=== PATIENT | female | born 2000 | race Caucasian/White ===

== ENCOUNTER → 2023-03-20 | Outpatient (CLI) | payer OTHER, SELFPAY ==
[2023-03-21 10:10] LABS: Bacteria 0 SEEN /hpf (None Seen); Mucous, Urine 0 SEEN /hpf (<or=2+)
[2023-03-21 10:40] LABS: Color, Urine Straw (Yellow); Glucose, Dipstick Normal (Normal); Ketone-Dipstick Negative (Negative); Leukocyte Esterase-Dipstick 100 /ul (Negative); Nitrite-Dipstick Negative (Negative); Occult Blood-Urine 25 /ul (Negative); Protein-Dipstick Negative (Negative); Specific Gravity, Urine 1.005 (1.002-1.030); Urine Bilirubin Dipstick Negative (Negative); Urine Clarity Sl. Cloudy (Clear); Urine Urobilinogen Normal (Normal)
[2023-03-21 11:04] LABS: Red Blood Cells-Urine 0-5 SEEN /hpf (0-5); Squamous Epithelial Cells - UA 0-5 SEEN /hpf (5-10); White Blood Cells 10-25 SEEN /hpf (0-5)
== END | disposition home or self-care (01) ==
PROVIDERS: Referring Provider Nurse Practitioner Family; Visit Provider Nurse Practitioner Family
DX: R30.0 Dysuria (principal)
CPT/HCPCS: 81001; 87077; 87086; 87088; 87186

== ENCOUNTER → 2023-06-20 | Outpatient (CLI) | payer OTHER, SELFPAY ==
--- NOTE | 2023-06-20 08:39 | US_ITS ---
STUDY: ULTRASOUND BREAST - RIGHT REASON FOR EXAM: Female, 23 years old. Palpable lump and tenderness in the right axilla. TECHNIQUE: Axial and longitudinal images of the RIGHT breast were performed with a high resolution ultrasound transducer. # OF IMAGES: 67 COMPARISON: None. FINDINGS: RIGHT Breast: The right axilla was examined with ultrasound. 2 benign-appearing lymph nodes are seen. The larger lymph node measures 1.5 cm x 1.2 cm x 0.5 cm. US/Breast Limited Unilateral IMPRESSION: 2 benign-appearing lymph nodes are seen in the right axilla. ASSESSMENT CATEGORY: BIRADS Category 2: Benign. A letter regarding these results will be sent to the patient by the facility within 30 days. Electronically Signed: Abhinav Panda MD at 10:04 EST ,
== END | disposition home or self-care (01) ==
LOC: US 08:35
PROVIDERS: PCP Nurse Practitioner Family; Referring Provider Nurse Practitioner Family; Visit Provider Nurse Practitioner Family
DX: L04.2 Acute lymphadenitis of upper limb (principal); N63.31 Unspecified lump in axillary tail of the right breast
CPT/HCPCS: 76642

== ENCOUNTER → 2023-06-23 | Outpatient (CLI) | payer OTHER, SELFPAY ==
[2023-06-23 09:06] LABS: Hematocrit 38.5 % (37-47); Hemoglobin 12.5 g/dL (12.0-15.0); Mean Corp Hgb Conc 32.5 g/dL (32-36); Mean Corpuscular Hgb 28.3 pg (27.0-32.0); Mean Corpuscular Volume 87.3 fL (81-99); Mean Platelet Vol. 9.8 fl (6.2-12.0); Platelet Count 295 K/mm3 (150-450); RBC Distribution Width CV 12.4 % (11.6-14.6); RBC Distribution Width SD 39.4 fl (35.1-43.9); Red Blood Count 4.41 M/mm3 (4.2-5.4); White Blood Count 8.4 K/mm3 (4.4-11.0)
== END | disposition home or self-care (01) ==
PROVIDERS: PCP Nurse Practitioner Family; Visit Provider Nurse Practitioner Family
DX: I88.9 Nonspecific lymphadenitis, unspecified (principal)
CPT/HCPCS: 36415; 85027

== ENCOUNTER → 2023-08-10 | Outpatient (CLI) | payer OTHER, SELFPAY ==
--- OUTSIDE RECORDS SUMMARY | 2023-08-10 08:26 | XMS RPT_ITS | CCD ---
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 the next 1-2 months. She has seen Dr. Thorne before, so schedule with Dr. Thorne. documented in this encounter [facility] 12-24-2020 Telephone encounter Note Please call patient and have her schedule a well woman exam in the next 1-2 months. She has seen Dr. Thorne before, so schedule with Dr. Thorne. [facility] Diagnosis High-tone pelvic floor dysfunction- Primary Other specified disorders of female genital organs documented in this encounter [facility] note* Diagnosis Dysmenorrhea documented in this encounter [facility] note* Diagnosis Dysmenorrhea- Primary Chronic pelvic pain in female Unspecified symptom associated with female genital organs documented in this encounter [facility] note* Diagnosis High-tone pelvic floor dysfunction- Primary Other specified disorders of female genital organs documented in this encounter [facility] note* Diagnosis High-tone pelvic floor dysfunction- Primary Other specified disorders of female genital organs documented in this encounter [facility] note* Diagnosis High-tone pelvic floor dysfunction- Primary Other specified disorders of female genital organs Muscle spasm Spasm of muscle Dysmenorrhea documented in this encounter [facility] note* Diagnosis Encounter for contraceptive management, unspecified type Menstrual migraine without status migrainosus, not intractable documented in this encounter [facility] for referral (narrative)* Outpatient Procedure (Routine) - Pending Review Specialty Diagnoses / Procedures Referred By Memo holman Referred To Contact [facility] Diagnoses Dysmenorrhea Procedures INSERT INTRAUTERINE DEVICE LEVONORGESTREL IU 52MG 5 YR INSERT INTRAUTERINE DEVICE Devan Ryder MD [address] [place] [address] [id number] [place] [address] Referral ID Status Reason Start Date Expiration Date Visits Requested Visits Authorized [id number] Pending Review Auto-Generat ed Referral 02/26/2022 02/26/2023 1 1 [facility] Summary Purpose Family History No Family History Records FoundNo Family History Records FoundNo Family History Records FoundNo Family History Records FoundNo Family History Records FoundNo Family History Records FoundNo Family History Records FoundNo Family History Records FoundNo Family History Records FoundNo Family History Records FoundNo Family History Records Found Advance Directives No Advanced Directives Records FoundDocuments on File Type Date Recorded Patient Kiln Packer Expl anation Advance Directives and Livin g Will 10/17/2019 2:26 PM Documents on File Type Date Recorded Patient Kiln Packer Expl anation Advance Directives and Livin g Will 10/17/2019 2:26 PM Discharge Instructions * Instructions* Franklin Murrieta MD - 10/17/2019 Follow up with your personal primary care physician or physician specialist or if you do not have apersonal physician, access the internet and utilize the [employer] Website www.Warrantly under the Find a Doctor [email or web address]/rdqa-o-rhmums/ or alternatively the [employer] Website www.Stootie under the Search for a Physician section [email or web address]/flqi-k-nrvqokvo/ and arrange for an appointment. If you are unable to obtain a follow up appointment, please visit an Urgent Care or Emergency Department for re-evaluation. A post Emergency Department follow-up evaluation is recommended in 2 days. Return to the emergency department if there is chest pain, shortness of breath, leg swelling or pain, coughing up blood, abdominal pain, fever, flank pain, bowel or bladder problems, weakness or numbness of the arms or legs, slurred speech, facial drooping, any trouble walking talking hearing seeing or speaking, fever, headache, neck stiffness or rash, convulsions or confusion, bloody stool or emesis, cool or blue extremities or skin, feeling dehydrated, weakness or passing out, bleeding of anytype, worsening or any other concerns. * Attachments The following attachments cannot be sent through Care Everywhere. * Chest Pain (Croatian) * URI (Upper Respiratory Infection) (Croatian) * Coronavirus Disease COVID-19: Isolation (Croatian) documented in this encounter Assessments Diagnosis Upper respiratory tract infection, unspecified type Non-cardiac chest pain Other chest pain Abnormal EKG Nonspecific abnormal electrocardiogram (ECG) (EKG) Diagnosis Acute lower respiratory tract infection Diagnosis Encounter for routine adult health examination without abnormal findings At risk for healthcare associated infection Menstrual migraine without status migrainosus, not intractable Diagnosis Verruca vulgaris- Primary Viral warts, unspecified Skin lesion of hand Unspecified disorder of skin and subcutaneous tissue Diagnosis Verruca vulgaris- Primary Viral warts, unspecified Diagnosis Verruca vulgaris- Primary Viral warts, unspecified History of Present Illness * Angela Tamez CNP - 10/22/2019 1:55 PM EDT Subjective Patient ID: Mark Unger is a 19 y.o. female. HPI:19-year-old female presents urgent care with complaint of continued cough and not feeling well.Patient was seen in the ER 5 days ago. She tested negative for the flu, had a negative chest x-ray and cardiac exam. Patient is concerned for possible coronavirus as she has been in contact with family members who are healthcare workers. Patient denies any fever but reports chills and night sweats.Cough is nonproductive. Patient reports last menses almost 3 weeks ago., denies chance of . Non-smoker. The following portions of the patient's history were reviewed and updated as appropriate: allergies, current medications, past medical history, past social history and problem list. Review of Systems Constitutional: Positive for chills and fatigue. Negative for fever. All systems reviewed with pertinent positives and negatives mentioned below. HENT: Negative for congestion, ear pain and sore throat. Eyes: Negative for redness and itching. Respiratory: Positive for cough. Negative for shortness of breath. Cardiovascular: Positive for chest pain. Negative for palpitations. Gastrointestinal: Negative for diarrhea and vomiting. Musculoskeletal: Negative for myalgias. Skin: Negative for rash. Neurological: Negative for dizziness, weakness and headaches. Objective Physical Exam Constitutional: Appearance: Normal appearance. HENT: Head: Normocephalic. Right Ear: Tympanic membrane, ear canal and external ear normal. Left Ear: Tympanic membrane, ear canal and external ear normal. Nose: Nose normal. Mouth/Throat: Mouth: Mucous membranes are moist. Eyes: Conjunctiva/sclera: Conjunctivae normal. Pupils: Pupils are equal, round, and reactive to light. Neck: Musculoskeletal: Neck supple. Cardiovascular: Rate and Rhythm: Normal rate and regular rhythm. Heart sounds: Normal heart sounds. Pulmonary: Effort: Pulmonary effort is normal. Comments: Diminished breath sounds right lower lobe. Musculoskeletal: Normal range of motion. Skin: General: Skin is warm and dry. Neurological: General: No focal deficit present. Mental Status: She is alert and oriented to person, place, and time. Psychiatric: Mood and Affect: Mood normal. Behavior: Behavior normal. PROCEDURE Procedures Assessment/Plan: Problem List Items Addressed This Visit None Visit Diagnoses Acute lower respiratory tract infection - Primary Relevant Medications azithromycin (Zithromax Z-Antione) 250 MG tablet dextromethorphan-guaiFENesin (Mucinex DM) 60-1,200 mg per 12 hr tablet Discussion Notes: Patient may have a developing pneumonia, however due to her recent chest x-ray 5 days ago I do not feel it is necessary to repeat it at this time. Patient does have stable vital signs. Patient does not currently fit testing criteria for coronavirus either. Patient is empirically treated with azithromycin, prescribed Mucinex DM for her cough. Patient should recheck in 2 to 3 daysif no improvement, sooner for new worsening concerns. Patient is given a work note for 7 days because she is still symptomatic with a cough. documented in this encounter* Stacie Dillard, DO - 01/14/2020 9:15 AM EDT Subjective Patient ID: Mark Unger is a 19 y.o. female. 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 Hx: Period occurs every 30-35 days, skips a month every once in a while usually around March or April, heavy bleeding and cramping, notices some fatigue, period lasts 5 days Allergies: reviewed and updated in EMR Meds: reviewed and updated in EMR, takes tylenol, excedrin or aleve as needed for migraines, control helped some with migraines (norethindone 0.35 mg 28 tablets) Immunizations: Updated in EMR SocHx: Occupation: Works at [employer] [place] on [address] Lives with Illicit drug use None Tobacco Use: non-smoker Alcohol: none Sexually active: yes, using condoms for control Exercise: rarely, body weight, running Diet: normal Caffeine: 4-5 large cups daily, works at [employer] Lft hip injury [id number], tore hamstring Review of Systems Constitutional: Positive for fatigue. Negative for chills and fever. Respiratory: Negative for cough and shortness of breath. Cardiovascular: Negative for chest pain. Genitourinary: Negative for menstrual problem and vaginal discharge. Musculoskeletal: Positive for back pain. Negative for arthralgias and gait problem. Objective PACU Vitals 01/14/20 0917 BP: 114/68 Pulse: 91 Resp: 16 Temp: 97.6 F (36.4 C) SpO2: 96% Physical Exam Constitutional: General: She is not in acute distress. Appearance: Normal appearance. HENT: Head: Normocephalic and atraumatic. Right Ear: Tympanic membrane, ear canal and external ear normal. Left Ear: Tympanic membrane, ear canal and external ear normal. Nose: Nose normal. No rhinorrhea. Mouth/Throat: Mouth: Mucous membranes are moist. Pharynx: Oropharynx is clear. Eyes: General: No scleral icterus. Extraocular Movements: Extraocular movements intact. Conjunctiva/sclera: Conjunctivae normal. Pupils: Pupils are equal, round, and reactive to light. Neck: Musculoskeletal: Neck supple. Thyroid: No thyroid mass. Cardiovascular: Rate and Rhythm: Normal rate and regular rhythm. Pulses: Normal pulses. Heart sounds: Normal heart sounds. No murmur. No gallop. Pulmonary: Effort: Pulmonary effort is normal. No respiratory distress. Breath sounds: Normal breath sounds. No wheezing or rhonchi. Abdominal: General: Bowel sounds are normal. There is no distension. Palpations: Abdomen is soft. There is no mass. Tenderness: There is no abdominal tenderness. Musculoskeletal: Normal range of motion. General: No swelling or deformity. Comments: Patient demonstrates walking on tiptoes, walking on heels. Patient has no tremor with intention or at rest. Lymphadenopathy: Cervical: No cervical adenopathy. Skin: General: Skin is warm and dry. Findings: No lesion or rash. Neurological: General: No focal deficit present. Mental Status: She is alert and oriented to person, place, and time. Cranial Nerves: No cranial nerve deficit. Sensory: No sensory deficit. Motor: No weakness or tremor. Coordination: Coordination normal. Gait: Gait normal. Deep Tendon Reflexes: Reflexes normal. Psychiatric: Mood and Affect: Mood normal. Behavior: Behavior normal. Judgment: Judgment normal. Assessment/Plan: Diagnoses and all orders for this visit: Encounter for routine adult health examination without abnormal findings - Varicella zoster Antibody, IgG; Future - M. Tuberculosis by QuantiFERON; Future At risk for healthcare associated infection - Varicella zoster Antibody, IgG; Future - M. 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 Patient gave me paperwork to fill out for her to send to nursing school. Some dates in her immunization records seem incorrect so we will run immunization report. Patient reports history of chickenpox and did not get varicella vaccine as a child. I will order titers to prove past history of infection. We will also get QuantiFERON to check for TB with blood test. Consider restarting progesterone if migraines continue- norethindrone 0.35 mg without a placebo week is what patient took in the past. At follow-up due depression screening, STI screening including chlamydia, gonorrhea, HIV, hepatitisC, syphilis, offer HPV vaccine. Patient will be due for first Pap after month of February. Stacie Dillard DO documented in this encounter* Pelon Bourne DO - 07/31/2020 11:02 AM EST Physical Exam Constitutional: General: She is not in acute distress. Appearance: Normal appearance. She is not ill-appearing, toxic-appearing or diaphoretic. HENT: Head: Normocephalic and atraumatic. Right Ear: External ear normal. Left Ear: External ear normal. Eyes: General: No scleral icterus. Right eye: No discharge. Left eye: No discharge. Extraocular Movements: Extraocular movements intact. Conjunctiva/sclera: Conjunctivae normal. Musculoskeletal: Right lower leg: No edema. Left lower leg: No edema. Skin: General: Skin is warm and dry. Capillary Refill: Capillary refill takes less than 2 seconds. Findings: No rash. Comments: Multiple warts on hands bilaterally; on left thumb wart if cracked but not draining, verydry and cracked skin of hands bilaterally with some erythema Neurological: General: No focal deficit present. Mental Status: She is alert and oriented to person, place, and time. Mental status is at baseline. Psychiatric: Mood and Affect: Mood normal. Behavior: Behavior normal. Thought Content: Thought content normal. Judgment: Judgment normal. BP 110/64 Pulse 89 Temp 98.6 F (37 C) (Temporal) Resp 16 Ht 5' 6 Wt 67 kg (147 lb 12.8 oz) LMP 07/09/2020 SpO2 98% BMI 23.86 kg/m I have personally seen and examined the patient independently of the resident physician. I have reviewed the history, physical, diagnosis and care plan with the resident physician, Devan Thorne DO. I confirm the assessment and treatment plan: Diagnoses and all orders for this visit: Verruca vulgaris - mupirocin (BACTROBAN) 2 % ointment; Apply topically 3 (three) times a day . Skin lesion of hand - mupirocin (BACTROBAN) 2 % ointment; Apply topically 3 (three) times a day . unable to freeze warts today in office - no liquid nitrogen Patient to RTC in 2 weeks (we will have moved and will have liquid nitrogen by then) Advised on skin softening techniques and advised against picking at lesions bactroban for open lesions Moisturize regularly * Devan Thorne DO - 07/31/2020 9:45 AM EST Subjective Patient ID: Mark Unger is a 20 y.o. female presenting for warts on both hand. HPI Warts: Patient complains of warts. The wart has been present for about 6 months and is located on the hands. Previous treatment has included salicylic acid, OTC treatment, tea tree oil with inadequate improvement. In the past when she would have an outbreak of warts she would be able to get rid of them with OTC medication. They are painful when the lesions are squeezed. 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 The following portions of the patient's history were reviewed and updated as appropriate: allergies, current medications and problem list. Review of Systems Constitutional: Negative for chills, fatigue and fever. Eyes: Negative for visual disturbance. Respiratory: Negative for cough, shortness of breath and wheezing. Cardiovascular: Negative for palpitations. Gastrointestinal: Negative for abdominal pain, constipation, diarrhea, nausea and vomiting. Genitourinary: Negative for dysuria and hematuria. Skin: Positive for rash. Negative for wound. Neurological: Negative for dizziness, weakness, light-headedness, numbness and headaches. All other systems reviewed and are negative. Objective BP 110/64 Pulse 89 Temp 98.6 F (37 C) (Temporal) Resp 16 Ht 5' 6 Wt 67 kg (147 lb 12.8 oz) LMP 07/09/2020 SpO2 98% BMI 23.86 kg/m Physical Exam Constitutional: General: She is not in acute distress. Appearance: Normal appearance. She is not ill-appearing. HENT: Head: Normocephalic and atraumatic. Cardiovascular: Rate and Rhythm: Normal rate and regular rhythm. Pulses: Normal pulses. Heart sounds: No murmur. No gallop. Abdominal: General: Abdomen is flat. Bowel sounds are normal. Palpations: Abdomen is soft. Tenderness: There is no abdominal tenderness. There is no guarding or rebound. Musculoskeletal: General: No swelling or deformity. Right lower leg: No edema. Left lower leg: No edema. Skin: General: Skin is warm and dry. Capillary Refill: Capillary refill takes less than 2 seconds. Findings: Lesion (mulitple circular about 3mm in diameter nodules over the tips of the fingers bilaterally, one nodule on the right thumb has from the base of the skin and slightly erythematous) present. No rash. Neurological: Mental Status: She is alert and oriented to person, place, and time. Psychiatric: Mood and Affect: Mood normal. Behavior: Behavior normal. Assessment/Plan: Diagnoses and all orders for this visit: Verruca vulgaris - Established, acute on chronic flare - Plan for cryotherapy for removal of warts in the next 2 weeks. - Recommended to use O'Keef's hand lotion to help soften the lesions and to keep her hands moisturized until her cryotherapy appointment. - A few lesions has split from their base creating an open sore, recommended to apply mupirocin to help prevent infection. - mupirocin (BACTROBAN) 2 % ointment; Apply topically 3 (three) times a day . Skin lesion of hand - New, acute - Due to wart on finger splitting at the base. - Plan as above - mupirocin (BACTROBAN) 2 % ointment; Apply topically 3 (three) times a day . Patient was discussed and seen with Dr. Bourne, who agrees with assessment and plan. Follow up in 2 weeks for cryotherapy for warts; sooner if needed. Devan Thorne DO, PGY2 Family Medicine [facility] documented in this encounter* Charley Sidhu DO - 08/21/2020 3:20 PM EST Physical Exam Patient appears well, in no apparent distress. Alert, pleasant and cooperative. Vital signs reviewed and documented in vital signs section. I have personally seen and examined the patient independently of the resident physician. I have reviewed the history, physical, diagnosis and care plan with the resident physician, Devan Thorne DO. I confirm the assessment and treatment plan: Diagnoses and all orders for this visit: Verruca vulgaris Skin lesion of hand Cryotherapy for warts. X 6 mos. All hands L hand and R hand Been using TC topicals since seen last PCP Past history of Presenting today for Reviewed problem list today Reviewed last note dated Reviewed labs / tests dated Reviewed specialty notes dated I agree with return to office plan. Patient was discussed, seen and plan reviewed with resident prior to leaving the office. * Devan Thorne DO - 08/21/2020 2:30 PM EST Subjective Patient ID: Mark Unger is a 20 y.o. female presenting for cryotherapy for warts on hands. HPI Warts: She has been trying to moisturize frequently with lotion since the last office visit. Been putting OTC remover and helping a little bit. Duration about 6 months and is located on the hands. Inthe past when she would have an outbreak of warts she would be able to get rid of them with OTC medication. They are painful when the lesions are squeezed. 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 She has had plantar warts frozen off when she was a child. The following portions of the patient's history were reviewed and updated as appropriate: allergies, current medications and problem list. Review of Systems Constitutional: Negative for chills, fatigue and fever. Eyes: Negative for visual disturbance. Respiratory: Negative for shortness of breath. Cardiovascular: Negative for chest pain and palpitations. Gastrointestinal: Negative for abdominal pain, constipation, diarrhea, nausea and vomiting. Skin: Positive for rash. Negative for wound. Neurological: Negative for dizziness, weakness, light-headedness, numbness and headaches. All other systems reviewed and are negative. Objective BP 122/78 Pulse 78 Temp 98.4 F (36.9 C) Resp 16 Ht 5' 5 Wt 65.8 kg (145 lb) SpO2 98% BMI 24.13 kg/m Physical Exam Constitutional: General: She is not in acute distress. Appearance: Normal appearance. She is not ill-appearing. HENT: Head: Normocephalic and atraumatic. Eyes: General: Right eye: No discharge. Left eye: No discharge. Cardiovascular: Rate and Rhythm: Normal rate. Heart sounds: No murmur. Pulmonary: Effort: Pulmonary effort is normal. Breath sounds: No wheezing or rales. Abdominal: General: Abdomen is flat. Bowel sounds are normal. Palpations: Abdomen is soft. Skin: General: Skin is warm and dry. Findings: Lesion (mulitple circular about 3mm in diameter nodules over the tips of the fingers bilaterally, one nodule on the right thumb nonerythematous with overgrowth of skin) present. Neurological: Mental Status: She is alert and oriented to person, place, and time. Psychiatric: Mood and Affect: Mood normal. Behavior: Behavior normal. Procedure: Cryotherapy of verruca vulgaris on hands bilaterally This procedure has been fully reviewed with the patient and written informed consent has been obtained before proceeding with the procedure. Liquid nitrogen was applied for 10-12 seconds to the skin lesions and the expected blistering or scabbing reaction explained. Do not pick at the areas. Patient reminded to expect hypopigmented scars from the procedure. Return if lesions fail to fully resolve. Assessment/Plan: Diagnoses and all orders for this visit: Verruca vulgaris - Established, uncontrolled - Patient here for cryotherapy of warts on hands bilaterally - Patient consented to procedure and tolerated it well - Discussed care after procedure. Recommended to avoid washing dishes while the healing blisters are on her hands. Continue to keep hands hydrated with lotion. Skin lesion of hand - Established, resolved - Previous wart on right thumb is no longer erythematous and warm Patient was discussed and seen with Dr. Sidhu, who agrees with assessment and plan. Follow up as needed if lesions have not fully resolved. Devan Thorne DO, PGY2 Family Medicine [facility] documented in this encounter* Charley Sidhu DO - 08/21/2020 3:20 PM EST Physical Exam Patient appears well, in no apparent distress. Alert, pleasant and cooperative. Vital signs reviewed and documented in vital signs section. I have personally seen and examined the patient independently of the resident physician. I have reviewed the history, physical, diagnosis and care plan with the resident physician, Devan Thorne DO. I confirm the assessment and treatment plan: Diagnoses and all orders for this visit: Verruca vulgaris Skin lesion of hand Cryotherapy for warts. X 6 mos. All hands L hand and R hand Been using TC topicals since seen last PCP Past history of Presenting today for Reviewed problem list today Reviewed last note dated Reviewed labs / tests dated Reviewed specialty notes dated I agree with return to office plan. Patient was discussed, seen and plan reviewed with resident prior to leaving the office. * Devan Thorne DO - 08/21/2020 2:30 PM EST Subjective Patient ID: Mark Unger is a 20 y.o. female presenting for cryotherapy for warts on hands. HPI Warts: She has been trying to moisturize frequently with lotion since the last office visit. Been putting OTC remover and helping a little bit. Duration about 6 months and is located on the hands. Inthe past when she would have an outbreak of warts she would be able to get rid of them with OTC medication. They are painful when the lesions are squeezed. 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 She has had plantar warts frozen off when she was a child. The following portions of the patient's history were reviewed and updated as appropriate: allergies, current medications and problem list. Review of Systems Constitutional: Negative for chills, fatigue and fever. Eyes: Negative for visual disturbance. Respiratory: Negative for shortness of breath. Cardiovascular: Negative for chest pain and palpitations. Gastrointestinal: Negative for abdominal pain, constipation, diarrhea, nausea and vomiting. Skin: Positive for rash. Negative for wound. Neurological: Negative for dizziness, weakness, light-headedness, numbness and headaches. All other systems reviewed and are negative. Objective BP 122/78 Pulse 78 Temp 98.4 F (36.9 C) Resp 16 Ht 5' 5 Wt 65.8 kg (145 lb) SpO2 98% BMI 24.13 kg/m Physical Exam Constitutional: General: She is not in acute distress. Appearance: Normal appearance. She is not ill-appearing. HENT: Head: Normocephalic and atraumatic. Eyes: General: Right eye: No discharge. Left eye: No discharge. Cardiovascular: Rate and Rhythm: Normal rate. Heart sounds: No murmur. Pulmonary: Effort: Pulmonary effort is normal. Breath sounds: No wheezing or rales. Abdominal: General: Abdomen is flat. Bowel sounds are normal. Palpations: Abdomen is soft. Skin: General: Skin is warm and dry. Findings: Lesion (mulitple circular about 3mm in diameter nodules over the tips of the fingers bilaterally, one nodule on the right thumb nonerythematous with overgrowth of skin) present. Neurological: Mental Status: She is alert and oriented to person, place, and time. Psychiatric: Mood and Affect: Mood normal. Behavior: Behavior normal. Procedure: Cryotherapy of verruca vulgaris on hands bilaterally This procedure has been fully reviewed with the patient and written informed consent has been obtained before proceeding with the procedure. Liquid nitrogen was applied for 10-12 seconds to the skin lesions and the expected blistering or scabbing reaction explained. Do not pick at the areas. Patient reminded to expect hypopigmented scars from the procedure. Return if lesions fail to fully resolve. Assessment/Plan: Diagnoses and all orders for this visit: Verruca vulgaris - Established, uncontrolled - Patient here for cryotherapy of warts on hands bilaterally - Patient consented to procedure and tolerated it well - Discussed care after procedure. Recommended to avoid washing dishes while the healing blisters are on her hands. Continue to keep hands hydrated with lotion. Skin lesion of hand - Established, resolved - Previous wart on right thumb is no longer erythematous and warm Patient was discussed and seen with Dr. Sidhu, who agrees with assessment and plan. Follow up as needed if lesions have not fully resolved. Devan Thorne DO, PGY2 Family Medicine [facility] documented in this encounter* Charley Sidhu DO - 08/21/2020 3:20 PM EST Physical Exam Patient appears well, in no apparent distress. Alert, pleasant and cooperative. Vital signs reviewed and documented in vital signs section. I have personally seen and examined the patient independently of the resident physician. I have reviewed the history, physical, diagnosis and care plan with the resident physician, Devan Thorne DO. I confirm the assessment and treatment plan: Diagnoses and all orders for this visit: Verruca vulgaris Skin lesion of hand Cryotherapy for warts. X 6 mos. All hands L hand and R hand Been using TC topicals since seen last I agree with return to office plan. Patient was discussed, seen and plan reviewed with resident prior to leaving the office. * Devan Thorne DO - 08/21/2020 2:30 PM EST Subjective Patient ID: Mark Unger is a 20 y.o. female presenting for cryotherapy for warts on hands. HPI Warts: She has been trying to moisturize frequently with lotion since the last office visit. Been putting OTC remover and helping a little bit. Duration about 6 months and is located on the hands. Inthe past when she would have an outbreak of warts she would be able to get rid of them with OTC medication. They are painful when the lesions are squeezed. 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 She has had plantar warts frozen off when she was a child. The following portions of the patient's history were reviewed and updated as appropriate: allergies, current medications and problem list. Review of Systems Constitutional: Negative for chills, fatigue and fever. Eyes: Negative for visual disturbance. Respiratory: Negative for shortness of breath. Cardiovascular: Negative for chest pain and palpitations. Gastrointestinal: Negative for abdominal pain, constipation, diarrhea, nausea and vomiting. Skin: Positive for rash. Negative for wound. Neurological: Negative for dizziness, weakness, light-headedness, numbness and headaches. All other systems reviewed and are negative. Objective BP 122/78 Pulse 78 Temp 98.4 F (36.9 C) Resp 16 Ht 5' 5 Wt 65.8 kg (145 lb) SpO2 98% BMI 24.13 kg/m Physical Exam Constitutional: General: She is not in acute distress. Appearance: Normal appearance. She is not ill-appearing. HENT: Head: Normocephalic and atraumatic. Eyes: General: Right eye: No discharge. Left eye: No discharge. Cardiovascular: Rate and Rhythm: Normal rate. Heart sounds: No murmur. Pulmonary: Effort: Pulmonary effort is normal. Breath sounds: No wheezing or rales. Abdominal: General: Abdomen is flat. Bowel sounds are normal. Palpations: Abdomen is soft. Skin: General: Skin is warm and dry. Findings: Lesion (mulitple circular about 3mm in diameter nodules over the tips of the fingers bilaterally, one nodule on the right thumb nonerythematous with overgrowth of skin) present. Neurological: Mental Status: She is alert and oriented to person, place, and time. Psychiatric: Mood and Affect: Mood normal. Behavior: Behavior normal. Procedure: Cryotherapy of verruca vulgaris on hands bilaterally This procedure has been fully reviewed with the patient and written informed consent has been obtained before proceeding with the procedure. Liquid nitrogen was applied for 10-12 seconds to the skin lesions and the expected blistering or scabbing reaction explained. Do not pick at the areas. Patient reminded to expect hypopigmented scars from the procedure. Return if lesions fail to fully resolve. Assessment/Plan: Diagnoses and all orders for this visit: Verruca vulgaris - Established, uncontrolled - Patient here for cryotherapy of warts on hands bilaterally - Patient consented to procedure and tolerated it well - Discussed care after procedure. Recommended to avoid washing dishes while the healing blisters are on her hands. Continue to keep hands hydrated with lotion. Skin lesion of hand - Established, resolved - Previous wart on right thumb is no longer erythematous and warm Patient was discussed and seen with Dr. Sidhu, who agrees with assessment and plan. Follow up as needed if lesions have not fully resolved. Devan Thorne DO, PGY2 Family Medicine [facility] documented in this encounter* Charley Sidhu DO - 08/21/2020 3:20 PM EST Physical Exam Patient appears well, in no apparent distress. Alert, pleasant and cooperative. Vital signs reviewed and documented in vital signs section. I have personally seen and examined the patient independently of the resident physician. I have reviewed the history, physical, diagnosis and care plan with the resident physician, Devan Thorne DO. I confirm the assessment and treatment plan: Diagnoses and all orders for this visit: Verruca vulgaris Skin lesion of hand Cryotherapy for warts. X 6 mos. All hands L hand and R hand Been using TC topicals since seen last I agree with return to office plan. Patient was discussed, seen and plan reviewed with resident prior to leaving the office. * Devan Thorne DO - 08/21/2020 2:30 PM EST Subjective Patient ID: Mark Unger is a 20 y.o. female presenting for cryotherapy for warts on hands. HPI Warts: She has been trying to moisturize frequently with lotion since the last office visit. Been putting OTC remover and helping a little bit. The warts that had split from their base has healed up and is no longer tender. Duration about 6 months and is located on the hands. In the past when she would have an outbreak of warts she would be able to get rid of them with OTC medication. They are painful when the lesions are squeezed. 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 She has had plantar warts frozen off when she was a child. The following portions of the patient's history were reviewed and updated as appropriate: allergies, current medications and problem list. Review of Systems Constitutional: Negative for chills, fatigue and fever. Eyes: Negative for visual disturbance. Respiratory: Negative for shortness of breath. Cardiovascular: Negative for chest pain and palpitations. Gastrointestinal: Negative for abdominal pain, constipation, diarrhea, nausea and vomiting. Skin: Positive for rash. Negative for wound. Neurological: Negative for dizziness, weakness, light-headedness, numbness and headaches. All other systems reviewed and are negative. Objective BP 122/78 Pulse 78 Temp 98.4 F (36.9 C) Resp 16 Ht 5' 5 Wt 65.8 kg (145 lb) SpO2 98% BMI 24.13 kg/m Physical Exam Constitutional: General: She is not in acute distress. Appearance: Normal appearance. She is not ill-appearing. HENT: Head: Normocephalic and atraumatic. Eyes: General: Right eye: No discharge. Left eye: No discharge. Cardiovascular: Rate and Rhythm: Normal rate. Heart sounds: No murmur. Pulmonary: Effort: Pulmonary effort is normal. Breath sounds: No wheezing or rales. Abdominal: General: Abdomen is flat. Bowel sounds are normal. Palpations: Abdomen is soft. Skin: General: Skin is warm and dry. Findings: Lesion (mulitple circular about 3mm in diameter nodules over the tips of the fingers bilaterally, one nodule on the right thumb nonerythematous with overgrowth of skin) present. Neurological: Mental Status: She is alert and oriented to person, place, and time. Psychiatric: Mood and Affect: Mood normal. Behavior: Behavior normal. Procedure: Cryotherapy of verruca vulgaris on hands bilaterally This procedure has been fully reviewed with the patient and written informed consent has been obtained before proceeding with the procedure. Liquid nitrogen was applied for 10-12 seconds to the skin lesions and the expected blistering or scabbing reaction explained. Do not pick at the areas. Patient reminded to expect hypopigmented scars from the procedure. Return if lesions fail to fully resolve. Assessment/Plan: Diagnoses and all orders for this visit: Verruca vulgaris - Established, uncontrolled - Patient here for cryotherapy of warts on hands bilaterally - Patient consented to procedure (informed consent scanned into chart) and tolerated it well - Discussed care after procedure. Recommended to avoid washing dishes while the healing blisters are on her hands. Continue to keep hands hydrated with lotion. Skin lesion of hand - Established, resolved - Previous wart on right thumb is no longer erythematous and warm Patient was discussed and seen with Dr. Sidhu, who agrees with assessment and plan. Follow up as needed if lesions have not fully resolved. Devan Thorne DO, PGY2 Family Medicine [facility] documented in this encounter* Charley Sidhu DO - 08/21/2020 3:20 PM EST Physical Exam Patient appears well, in no apparent distress. Alert, pleasant and cooperative. Vital signs reviewed and documented in vital signs section. I have personally seen and examined the patient independently of the resident physician. I have reviewed the history, physical, diagnosis and care plan with the resident physician, Devan Thorne DO. I confirm the assessment and treatment plan: Diagnoses and all orders for this visit: Verruca vulgaris Skin lesion of hand Cryotherapy for warts. X 6 mos. All hands L hand and R hand Been using TC topicals since seen last I agree with return to office plan. Patient was discussed, seen and plan reviewed with resident prior to leaving the office. * Devan Thorne DO - 08/21/2020 2:30 PM EST Subjective Patient ID: Mark Unger is a 20 y.o. female presenting for cryotherapy for warts on hands. HPI Warts: She has been trying to moisturize frequently with lotion since the last office visit. Been putting OTC remover and helping a little bit. The warts that had split from their base has healed up and is no longer tender. Duration about 6 months and is located on the hands. In the past when she would have an outbreak of warts she would be able to get rid of them with OTC medication. They are painful when the lesions are squeezed. 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 She has had plantar warts frozen off when she was a child. The following portions of the patient's history were reviewed and updated as appropriate: allergies, current medications and problem list. Review of Systems Constitutional: Negative for chills, fatigue and fever. Eyes: Negative for visual disturbance. Respiratory: Negative for shortness of breath. Cardiovascular: Negative for chest pain and palpitations. Gastrointestinal: Negative for abdominal pain, constipation, diarrhea, nausea and vomiting. Skin: Positive for rash. Negative for wound. Neurological: Negative for dizziness, weakness, light-headedness, numbness and headaches. All other systems reviewed and are negative. Objective BP 122/78 Pulse 78 Temp 98.4 F (36.9 C) Resp 16 Ht 5' 5 Wt 65.8 kg (145 lb) SpO2 98% BMI 24.13 kg/m Physical Exam Constitutional: General: She is not in acute distress. Appearance: Normal appearance. She is not ill-appearing. HENT: Head: Normocephalic and atraumatic. Eyes: General: Right eye: No discharge. Left eye: No discharge. Cardiovascular: Rate and Rhythm: Normal rate. Heart sounds: No murmur. Pulmonary: Effort: Pulmonary effort is normal. Breath sounds: No wheezing or rales. Abdominal: General: Abdomen is flat. Bowel sounds are normal. Palpations: Abdomen is soft. Skin: General: Skin is warm and dry. Findings: Lesion (mulitple circular about 3mm in diameter nodules over the tips of the fingers bilaterally, one nodule on the right thumb nonerythematous with overgrowth of skin) present. Neurological: Mental Status: She is alert and oriented to person, place, and time. Psychiatric: Mood and Affect: Mood normal. Behavior: Behavior normal. Procedure: Cryotherapy of verruca vulgaris on hands bilaterally This procedure has been fully reviewed with the patient and written informed consent has been obtained before proceeding with the procedure. Liquid nitrogen was applied for 10-12 seconds to the skin lesions and the expected blistering or scabbing reaction explained. Do not pick at the areas. Patient reminded to expect hypopigmented scars from the procedure. Return if lesions fail to fully resolve. Assessment/Plan: Diagnoses and all orders for this visit: Verruca vulgaris - Established, uncontrolled - Patient here for cryotherapy of warts on hands bilaterally - Patient consented to procedure (informed consent scanned into chart) and tolerated it well - Discussed care after procedure. Recommended to avoid washing dishes while the healing blisters are on her hands. Continue to keep hands hydrated with lotion. Skin lesion of hand - Established, resolved - Previous wart on right thumb is no longer erythematous and warm Patient was discussed and seen with Dr. Sidhu, who agrees with assessment and plan. Follow up as needed if lesions have not fully resolved. Devan Thorne DO, PGY2 Family Medicine [facility] documented in this encounter* Devan Thorne, - 09/18/2020 8:00 AM EST Subjective Patient ID: Mark Unger is a 20 y.o. female presenting for warts on hands. HPI Wart: Same spots as last visit with resolution of the small lesion on dorsum of left thumb and possibly the small lesion on the right middle finger by her knuckle. Denies any new lesions on her hands. The two big ones did not blister after the cryotherapy. Denied infection or extensive bleeding after procedure at last visit. Noticed them coming back last week. Irritating especially the larger ones on the left thumb and ring finger. They are the most bothersome while working. Started using the OTC medication and pumice stoning the lesions but hasn't noticeda difference. She tried to find her roll of duck tape but was not able to locate it. The following portions of the patient's history were reviewed and updated as appropriate: allergies, current medications and problem list. Review of Systems Constitutional: Negative for chills and fever. Respiratory: Negative for shortness of breath. Gastrointestinal: Negative for abdominal pain, constipation, diarrhea and nausea. Musculoskeletal: Negative for joint swelling. Skin: Positive for rash. Negative for wound. Neurological: Negative for dizziness, weakness, numbness and headaches. Objective BP 118/76 (BP Location: Right arm, Patient Position: Sitting) Pulse 71 Temp 98.4 F (36.9 C) Resp 16 Ht 5' 6 Wt 67.6 kg (149 lb) SpO2 99% BMI 24.05 kg/m Physical Exam Constitutional: General: She is not in acute distress. Appearance: Normal appearance. She is not ill-appearing. HENT: Head: Normocephalic and atraumatic. Cardiovascular: Rate and Rhythm: Normal rate and regular rhythm. Pulses: Normal pulses. Heart sounds: No murmur. No gallop. Pulmonary: Effort: Pulmonary effort is normal. Breath sounds: Normal breath sounds. No wheezing. Abdominal: General: Abdomen is flat. Bowel sounds are normal. Palpations: Abdomen is soft. Tenderness: There is no abdominal tenderness. There is no guarding or rebound. Musculoskeletal: General: No tenderness. Right lower leg: No edema. Left lower leg: No edema. 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 Capillary Refill: Capillary refill takes less than 2 seconds. Findings: Rash present. No erythema. Comments: Before cryotherapy images found below. Neurological: Mental Status: She is alert and oriented to person, place, and time. Deep Tendon Reflexes: Reflex Scores: Bicep reflexes are 2+ on the right side and 2+ on the left side. Psychiatric: Mood and Affect: Mood normal. Behavior: Behavior normal. Procedure: Cryotherapy of verruca vulgaris on hands bilaterally This procedure has been fully reviewed with the patient and written informed consent has been obtained before proceeding with the procedure. Liquid nitrogen was applied for 10-12 seconds to the skin lesions and the expected blistering or scabbing reaction explained. Do not pick at the areas. Patient reminded to expect hypopigmented scars from the procedure. Return if lesions fail to fully resolve. Post cryotherapy images: Assessment/Plan: Diagnoses and all orders for this visit: Verruca vulgaris - Established, uncontrolled - Incomplete resolution from previous cryotherapy without adverse effects. - No new lesions has appeared. Patient consented to repeat cryotherapy today. Patient tolerated procedure well. - Before and after treatment images are indicated above. - Discussed post cryotherapy management including but not limited to trying to keep her lesions undisturbed as much as possible while they heal and moisturized as needed. Patient was discussed and seen with Dr. Bourne, who agrees with assessment and plan. Follow up in 3 weeks if warts does not resolves. Devan Thorne DO, PGY2 Family Medicine [facility] documented in this encounter* Pelon Bourne DO - 09/25/2020 8:18 AM EDT Physical Exam Constitutional: General: She is not in acute distress. Appearance: Normal appearance. She is not ill-appearing, toxic-appearing or diaphoretic. HENT: Head: Normocephalic and atraumatic. Right Ear: External ear normal. Left Ear: External ear normal. Eyes: General: No scleral icterus. Right eye: No discharge. Left eye: No discharge. Extraocular Movements: Extraocular movements intact. Conjunctiva/sclera: Conjunctivae normal. Musculoskeletal: Right lower leg: No edema. Left lower leg: No edema. Skin: General: Skin is warm and dry. Capillary Refill: Capillary refill takes less than 2 seconds. Findings: No rash. Comments: Multiple warts on hands bilaterally; on left thumb wart if cracked but not draining, verydry and cracked skin of hands bilaterally with some erythema Neurological: General: No focal deficit present. Mental Status: She is alert and oriented to person, place, and time. Mental status is at baseline. Psychiatric: Mood and Affect: Mood normal. Behavior: Behavior normal. Thought Content: Thought content normal. Judgment: Judgment normal. BP 118/76 (BP Location: Right arm, Patient Position: Sitting) Pulse 71 Temp 98.4 F (36.9 C) Resp 16 Ht 5' 6 Wt 67.6 kg (149 lb) SpO2 99% BMI 24.05 kg/m I have personally seen and examined the patient independently of the resident physician. I have reviewed the history, physical, diagnosis and care plan with the resident physician, Devan Thorne DO. I confirm the assessment and treatment plan: Diagnoses and all orders for this visit: Verruca vulgaris Cryotherapy was performed using the timed spot freeze technique. The nozzle of the liquid nitrogen spray gun was positioned approximately 1.5 cm from the skin surface and aimed at the center of the target lesion. The lesions were treated with a steady stream of liquid nitrogen until an ice field formed extending 2 mm beyond the lesion. Each lesion was allowed to thaw and was treated with an additional cycle. The patient tolerated the procedure well without complaints. The patient was educated regarding post-procedural care and was warned that there may be blister formation, redness, and pain.Recommended OTC analgesia as needed for pain. * Devan Thorne DO - 09/18/2020 8:00 AM EST Subjective Patient ID: Mark Unger is a 20 y.o. female presenting for warts on hands. HPI Wart: Same spots as last visit with resolution of the small lesion on dorsum of left thumb and possibly the small lesion on the right middle finger by her knuckle. Denies any new lesions on her hands. The two big ones did not blister after the cryotherapy. Denied infection or extensive bleeding after procedure at last visit. Noticed them coming back last week. Irritating especially the larger ones on the left thumb and ring finger. They are the most bothersome while working. Started using the OTC medication and pumice stoning the lesions but hasn't noticeda difference. She tried to find her roll of duck tape but was not able to locate it. The following portions of the patient's history were reviewed and updated as appropriate: allergies, current medications and problem list. Review of Systems Constitutional: Negative for chills and fever. Respiratory: Negative for shortness of breath. Gastrointestinal: Negative for abdominal pain, constipation, diarrhea and nausea. Musculoskeletal: Negative for joint swelling. Skin: Positive for rash. Negative for wound. Neurological: Negative for dizziness, weakness, numbness and headaches. Objective BP 118/76 (BP Location: Right arm, Patient Position: Sitting) Pulse 71 Temp 98.4 F (36.9 C) Resp 16 Ht 5' 6 Wt 67.6 kg (149 lb) SpO2 99% BMI 24.05 kg/m Physical Exam Constitutional: General: She is not in acute distress. Appearance: Normal appearance. She is not ill-appearing. HENT: Head: Normocephalic and atraumatic. Cardiovascular: Rate and Rhythm: Normal rate and regular rhythm. Pulses: Normal pulses. Heart sounds: No murmur. No gallop. Pulmonary: Effort: Pulmonary effort is normal. Breath sounds: Normal breath sounds. No wheezing. Abdominal: General: Abdomen is flat. Bowel sounds are normal. Palpations: Abdomen is soft. Tenderness: There is no abdominal tenderness. There is no guarding or rebound. Musculoskeletal: General: No tenderness. Right lower leg: No edema. Left lower leg: No edema. 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 Capillary Refill: Capillary refill takes less than 2 seconds. Findings: Rash (muliple papular lesions over the left thumb and ring finger, and 2 lesions on rightmiddle finger on the dorsal side and 1 lesion on the hightower pad of the ring finger.) present. No erythema. Comments: Before cryotherapy images found below. Neurological: Mental Status: She is alert and oriented to person, place, and time. Deep Tendon Reflexes: Reflex Scores: Bicep reflexes are 2+ on the right side and 2+ on the left side. Psychiatric: Mood and Affect: Mood normal. Behavior: Behavior normal. Procedure: Cryotherapy of verruca vulgaris on hands bilaterally This procedure has been fully reviewed with the patient and written informed consent has been obtained before proceeding with the procedure. Liquid nitrogen was applied for 10-12 seconds to the skin lesions and the expected blistering or scabbing reaction explained. Do not pick at the areas. Patient reminded to expect hypopigmented scars from the procedure. Return if lesions fail to fully resolve. Post cryotherapy images: Assessment/Plan: Diagnoses and all orders for this visit: Verruca vulgaris - Established, uncontrolled - Incomplete resolution from previous cryotherapy without adverse effects. - No new lesions has appeared. Patient consented to repeat cryotherapy today. 5 lesions treated andpatient tolerated procedure well. - Before and after treatment images are indicated above. - Discussed post cryotherapy management including but not limited to trying to keep her lesions undisturbed as much as possible while they heal and moisturized as needed. Patient was discussed and seen with Dr. Bourne, who agrees with assessment and plan. Follow up in 3 weeks if warts does not resolves. Devan Thorne DO, PGY2 Family Medicine [facility] documented in this encounter* Pelon Bourne DO - 09/25/2020 8:18 AM EDT Physical Exam Constitutional: General: She is not in acute distress. Appearance: Normal appearance. She is not ill-appearing, toxic-appearing or diaphoretic. HENT: Head: Normocephalic and atraumatic. Right Ear: External ear normal. Left Ear: External ear normal. Eyes: General: No scleral icterus. Right eye: No discharge. Left eye: No discharge. Extraocular Movements: Extraocular movements intact. Conjunctiva/sclera: Conjunctivae normal. Musculoskeletal: Right lower leg: No edema. Left lower leg: No edema. Skin: General: Skin is warm and dry. Capillary Refill: Capillary refill takes less than 2 seconds. Findings: No rash. Comments: Multiple warts on hands bilaterally; on left thumb wart if cracked but not draining, verydry and cracked skin of hands bilaterally with some erythema Neurological: General: No focal deficit present. Mental Status: She is alert and oriented to person, place, and time. Mental status is at baseline. Psychiatric: Mood and Affect: Mood normal. Behavior: Behavior normal. Thought Content: Thought content normal. Judgment: Judgment normal. BP 118/76 (BP Location: Right arm, Patient Position: Sitting) Pulse 71 Temp 98.4 F (36.9 C) Resp 16 Ht 5' 6 Wt 67.6 kg (149 lb) SpO2 99% BMI 24.05 kg/m I have personally seen and examined the patient independently of the resident physician. I have reviewed the history, physical, diagnosis and care plan with the resident physician, Devan Thorne DO. I confirm the assessment and treatment plan: Diagnoses and all orders for this visit: Verruca vulgaris Cryotherapy was performed using the timed spot freeze technique. The nozzle of the liquid nitrogen spray gun was positioned approximately 1.5 cm from the skin surface and aimed at the center of the target lesion. The lesions were treated with a steady stream of liquid nitrogen until an ice field formed extending 2 mm beyond the lesion. Each lesion was allowed to thaw and was treated with an additional cycle. The patient tolerated the procedure well without complaints. The patient was educated regarding post-procedural care and was warned that there may be blister formation, redness, and pain.Recommended OTC analgesia as needed for pain. * Devan Thorne DO - 09/18/2020 8:00 AM EST Subjective Patient ID: Mark Unger is a 20 y.o. female presenting for warts on hands. HPI Wart: Same spots as last visit with resolution of the small lesion on dorsum of left thumb and possibly the small lesion on the right middle finger by her knuckle. Denies any new lesions on her hands. The two big ones did not blister after the cryotherapy. Denied infection or extensive bleeding after procedure at last visit. Noticed them coming back last week. Irritating especially the larger ones on the left thumb and ring finger. They are the most bothersome while working. Started using the OTC medication and pumice stoning the lesions but hasn't noticeda difference. She tried to find her roll of duck tape but was not able to locate it. The following portions of the patient's history were reviewed and updated as appropriate: allergies, current medications and problem list. Review of Systems Constitutional: Negative for chills and fever. Respiratory: Negative for shortness of breath. Gastrointestinal: Negative for abdominal pain, constipation, diarrhea and nausea. Musculoskeletal: Negative for joint swelling. Skin: Positive for rash. Negative for wound. Neurological: Negative for dizziness, weakness, numbness and headaches. Objective BP 118/76 (BP Location: Right arm, Patient Position: Sitting) Pulse 71 Temp 98.4 F (36.9 C) Resp 16 Ht 5' 6 Wt 67.6 kg (149 lb) SpO2 99% BMI 24.05 kg/m Physical Exam Constitutional: General: She is not in acute distress. Appearance: Normal appearance. She is not ill-appearing. HENT: Head: Normocephalic and atraumatic. Cardiovascular: Rate and Rhythm: Normal rate and regular rhythm. Pulses: Normal pulses. Heart sounds: No murmur. No gallop. Pulmonary: Effort: Pulmonary effort is normal. Breath sounds: Normal breath sounds. No wheezing. Abdominal: General: Abdomen is flat. Bowel sounds are normal. Palpations: Abdomen is soft. Tenderness: There is no abdominal tenderness. There is no guarding or rebound. Musculoskeletal: General: No tenderness. Right lower leg: No edema. Left lower leg: No edema. 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 Capillary Refill: Capillary refill takes less than 2 seconds. Findings: Rash (muliple papular lesions over the left thumb and ring finger, and 2 lesions on rightmiddle finger on the dorsal side and 1 lesion on the hightower pad of the ring finger.) present. No erythema. Comments: Before cryotherapy images found below. Neurological: Mental Status: She is alert and oriented to person, place, and time. Deep Tendon Reflexes: Reflex Scores: Bicep reflexes are 2+ on the right side and 2+ on the left side. Psychiatric: Mood and Affect: Mood normal. Behavior: Behavior normal. Procedure: Cryotherapy of verruca vulgaris on hands bilaterally This procedure has been fully reviewed with the patient and written informed consent has been obtained before proceeding with the procedure. Liquid nitrogen was applied for 10-12 seconds to the skin lesions and the expected blistering or scabbing reaction explained. Do not pick at the areas. Patient reminded to expect hypopigmented scars from the procedure. Return if lesions fail to fully resolve. Post cryotherapy images: Assessment/Plan: Diagnoses and all orders for this visit: Verruca vulgaris - Established, uncontrolled - Incomplete resolution from previous cryotherapy without adverse effects. - No new lesions has appeared. Patient consented to repeat cryotherapy today. 5 lesions treated andpatient tolerated procedure well. - Before and after treatment images are indicated above. - Discussed post cryotherapy management including but not limited to trying to keep her lesions undisturbed as much as possible while they heal and moisturized as needed. Patient was discussed and seen with Dr. Bourne, who agrees with assessment and plan. Follow up in 3 weeks if warts does not resolves. Devan Thorne DO, PGY2 Family Medicine [facility] documented in this encounter* Devan Thorne DO - 09/18/2020 8:00 AM EST Subjective Patient ID: Mark Unger is a 20 y.o. female presenting for warts on hands. HPI Wart: Same spots as last visit with resolution of the small lesion on dorsum of left thumb and possibly the small lesion on the right middle finger by her knuckle. Denies any new lesions on her hands. The two big ones did not blister after the cryotherapy. Denied infection or extensive bleeding after procedure at last visit. Noticed them coming back last week. Irritating especially the larger ones on the left thumb and ring finger. They are the most bothersome while working. Started using the OTC medication and pumice stoning the lesions but hasn't noticeda difference. She tried to find her roll of duck tape but was not able to locate it. The following portions of the patient's history were reviewed and updated as appropriate: allergies, current medications and problem list. Review of Systems Constitutional: Negative for chills and fever. Respiratory: Negative for shortness of breath. Gastrointestinal: Negative for abdominal pain, constipation, diarrhea and nausea. Musculoskeletal: Negative for joint swelling. Skin: Positive for rash. Negative for wound. Neurological: Negative for dizziness, weakness, numbness and headaches. Objective BP 118/76 (BP Location: Right arm, Patient Position: Sitting) Pulse 71 Temp 98.4 F (36.9 C) Resp 16 Ht 5' 6 Wt 67.6 kg (149 lb) SpO2 99% BMI 24.05 kg/m Physical Exam Constitutional: General: She is not in acute distress. Appearance: Normal appearance. She is not ill-appearing. HENT: Head: Normocephalic and atraumatic. Cardiovascular: Rate and Rhythm: Normal rate and regular rhythm. Pulses: Normal pulses. Heart sounds: No murmur. No gallop. Pulmonary: Effort: Pulmonary effort is normal. Breath sounds: Normal breath sounds. No wheezing. Abdominal: General: Abdomen is flat. Bowel sounds are normal. Palpations: Abdomen is soft. Tenderness: There is no abdominal tenderness. There is no guarding or rebound. Musculoskeletal: General: No tenderness. Right lower leg: No edema. Left lower leg: No edema. 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 Capillary Refill: Capillary refill takes less than 2 seconds. Findings: Rash (muliple papular lesions over the left thumb and ring finger, and 2 lesions on rightmiddle finger on the dorsal side and 1 lesion on the hightower pad of the ring finger.) present. No erythema. Comments: Before cryotherapy images found below. Neurological: Mental Status: She is alert and oriented to person, place, and time. Deep Tendon Reflexes: Reflex Scores: Bicep reflexes are 2+ on the right side and 2+ on the left side. Psychiatric: Mood and Affect: Mood normal. Behavior: Behavior normal. Procedure: Cryotherapy of verruca vulgaris on hands bilaterally This procedure has been fully reviewed with the patient and written informed consent has been obtained before proceeding with the procedure. Liquid nitrogen was applied for 10-12 seconds to the skin lesions and the expected blistering or scabbing reaction explained. Do not pick at the areas. Patient reminded to expect hypopigmented scars from the procedure. Return if lesions fail to fully resolve. Post cryotherapy images: Assessment/Plan: Diagnoses and all orders for this visit: Verruca vulgaris - Established, uncontrolled - Incomplete resolution from previous cryotherapy without adverse effects. - No new lesions has appeared. Patient consented to repeat cryotherapy today. 5 lesions treated andpatient tolerated procedure well. - Before and after treatment images are indicated above. - Discussed post cryotherapy management including but not limited to trying to keep her lesions undisturbed as much as possible while they heal and moisturized as needed. Patient was discussed and seen with Dr. Bourne, who agrees with assessment and plan. Follow up in 3 weeks if warts does not resolves. Devan Thorne DO, PGY2 Family Medicine [facility] documented in this encounter Instructions * Patient Instructions* Devan Thorne DO - 09/18/2020 8:30 AM EST Warts: Care Instructions Overview A wart is a harmless skin growth caused by a virus. The virus makes the top layer of skin grow quickly, causing a wart. Warts usually go away on their own in months or years. There are several types of warts. Common warts appear most often on the hands, but they may be anywhere on the body. Warts spread easily. You can reinfect yourself by touching the wart and then touching another part of your body. You can infect others by sharing towels, razors, or other personal items. Most warts don't need treatment. But if warts cause pain or spread, your doctor may recommend that you use an [id number] treatment. Or your doctor may prescribe a stronger medicine to put on warts or may inject them with medicine. The doctor also can remove warts through surgery or by freezing them. Follow-up care is a castillo part of your treatment and safety. Be sure to make and go to all appointments, and call your doctor if you are having problems. It's also a good idea to know your test resultsand keep a list of the medicines you take. How can you care for yourself at home? Use salicylic acid or duct tape as your doctor directs. You put the medicine or the tape on a wart for several days and then file down the skin on the wart. You use the salicylic acid treatment for 2 to 3 months or the tape for 1 to 2 months. If your doctor prescribes medicine to put on warts, use it exactly as directed. Call your doctor ifyou think you are having a problem with your medicine. To avoid spreading warts Keep warts covered with a bandage or athletic tape. Don't bite your nails or cuticles. This may spread warts from one finger to another. When should you call for help? Call your doctor now or seek immediate medical care if: You have signs of infection, such as: ? Increased pain, swelling, warmth, or redness. ? Red streaks leading from a wart. ? Pus draining from a wart. ? A fever. Watch closely for changes in your health, and be sure to contact your doctor if: You do not get better as expected. Where can you learn more? Log into your personal health record on https://MediaSilot.Warrantly and enter K886 in the Education box to learn more about Warts: Care Instructions. Current as of: January 10, 2020 Content Version: 12.7 [employer]. Care instructions adapted under license by your healthcare professional. If you have questions about a medical condition or this instruction, always ask your healthcare professional. [employer] disclaims any warranty or liability for your use of this information. documented in this encounter* Patient Instructions* Devan Thorne DO - 09/18/2020 8:30 AM EST Warts: Care Instructions Overview A wart is a harmless skin growth caused by a virus. The virus makes the top layer of skin grow quickly, causing a wart. Warts usually go away on their own in months or years. There are several types of warts. Common warts appear most often on the hands, but they may be anywhere on the body. Warts spread easily. You can reinfect yourself by touching the wart and then touching another part of your body. You can infect others by sharing towels, razors, or other personal items. Most warts don't need treatment. But if warts cause pain or spread, your doctor may recommend that you use an [id number]-heevxdt treatment. Or your doctor may prescribe a stronger medicine to put on warts or may inject them with medicine. The doctor also can remove warts through surgery or by freezing them. Follow-up care is a castillo part of your treatment and safety. Be sure to make and go to all appointments, and call your doctor if you are having problems. It's also a good idea to know your test resultsand keep a list of the medicines you take. How can you care for yourself at home? Use salicylic acid or duct tape as your doctor directs. You put the medicine or the tape on a wart for several days and then file down the skin on the wart. You use the salicylic acid treatment for 2 to 3 months or the tape for 1 to 2 months. If your doctor prescribes medicine to put on warts, use it exactly as directed. Call your doctor ifyou think you are having a problem with your medicine. To avoid spreading warts Keep warts covered with a bandage or athletic tape. Don't bite your nails or cuticles. This may spread warts from one finger to another. When should you call for help? Call your doctor now or seek immediate medical care if: You have signs of infection, such as: ? Increased pain, swelling, warmth, or redness. ? Red streaks leading from a wart. ? Pus draining from a wart. ? A fever. Watch closely for changes in your health, and be sure to contact your doctor if: You do not get better as expected. Where can you learn more? Log into your personal health record on https://MyChart.Warrantly and enter K886 in the Education box to learn more about Warts: Care Instructions. Current as of: January 10, 2020 Content Version: 12.7 [employer]. Care instructions adapted under license by your healthcare professional. If you have questions about a medical condition or this instruction, always ask your healthcare professional. [employer] disclaims any warranty or liability for your use of this information. documented in this encounter* Patient Instructions* Devan Thorne DO - 09/18/2020 8:30 AM EST Warts: Care Instructions Overview A wart is a harmless skin growth caused by a virus. The virus makes the top layer of skin grow quickly, causing a wart. Warts usually go away on their own in months or years. There are several types of warts. Common warts appear most often on the hands, but they may be anywhere on the body. Warts spread easily. You can reinfect yourself by touching the wart and then touching another part of your body. You can infect others by sharing towels, razors, or other personal items. Most warts don't need treatment. But if warts cause pain or spread, your doctor may recommend that you use an wege-sda-xvptpyb treatment. Or your doctor may prescribe a stronger medicine to put on warts or may inject them with medicine. The doctor also can remove warts through surgery or by freezing them. Follow-up care is a castillo part of your treatment and safety. Be sure to make and go to all appointments, and call your doctor if you are having problems. It's also a good idea to know your test resultsand keep a list of the medicines you take. How can you care for yourself at home? Use salicylic acid or duct tape as your doctor directs. You put the medicine or the tape on a wart for several days and then file down the skin on the wart. You use the salicylic acid treatment for 2 to 3 months or the tape for 1 to 2 months. If your doctor prescribes medicine to put on warts, use it exactly as directed. Call your doctor ifyou think you are having a problem with your medicine. To avoid spreading warts Keep warts covered with a bandage or athletic tape. Don't bite your nails or cuticles. This may spread warts from one finger to another. When should you call for help? Call your doctor now or seek immediate medical care if: You have signs of infection, such as: ? Increased pain, swelling, warmth, or redness. ? Red streaks leading from a wart. ? Pus draining from a wart. ? A fever. Watch closely for changes in your health, and be sure to contact your doctor if: You do not get better as expected. Where can you learn more? Log into your personal health record on [email or web address] and enter K886 in the Education box to learn more about Warts: Care Instructions. Current as of: January 10, 2020 Content Version: 12.7 [employer], [employer]. Care instructions adapted under license by your healthcare professional. If you have questions about a medical condition or this instruction, always ask your healthcare professional. [employer] disclaims any warranty or liability for your use of this information. documented in this encounter* Patient Instructions* Devan Thorne DO - 09/18/2020 8:30 AM EST Warts: Care Instructions Overview A wart is a harmless skin growth caused by a virus. The virus makes the top layer of skin grow quickly, causing a wart. Warts usually go away on their own in months or years. There are several types of warts. Common warts appear most often on the hands, but they may be anywhere on the body. Warts spread easily. You can reinfect yourself by touching the wart and then touching another part of your body. You can infect others by sharing towels, razors, or other personal items. Most warts don't need treatment. But if warts cause pain or spread, your doctor may recommend that you use an zvxn-aib-fvyblzg treatment. Or your doctor may prescribe a stronger medicine to put on warts or may inject them with medicine. The doctor also can remove warts through surgery or by freezing them. Follow-up care is a castillo part of your treatment and safety. Be sure to make and go to all appointments, and call your doctor if you are having problems. It's also a good idea to know your test resultsand keep a list of the medicines you take. How can you care for yourself at home? Use salicylic acid or duct tape as your doctor directs. You put the medicine or the tape on a wart for several days and then file down the skin on the wart. You use the salicylic acid treatment for 2 to 3 months or the tape for 1 to 2 months. If your doctor prescribes medicine to put on warts, use it exactly as directed. Call your doctor ifyou think you are having a problem with your medicine. To avoid spreading warts Keep warts covered with a bandage or athletic tape. Don't bite your nails or cuticles. This may spread warts from one finger to another. When should you call for help? Call your doctor now or seek immediate medical care if: You have signs of infection, such as: ? Increased pain, swelling, warmth, or redness. ? Red streaks leading from a wart. ? Pus draining from a wart. ? A fever. Watch closely for changes in your health, and be sure to contact your doctor if: You do not get better as expected. Where can you learn more? Log into your personal health record on [email or web address] and enter K886 in the Education box to learn more about Warts: Care Instructions. Current as of: January 10, 2020 Content Version: 12.7 [employer]. Care instructions adapted under license by your healthcare professional. If you have questions about a medical condition or this instruction, always ask your healthcare professional. [employer] disclaims any warranty or liability for your use of this information. documented in this encounter Reason for Referral Status Reason Specialty Diagnoses / Procedures Referred By Contact Referred To Contact Authorized Specialty Services Required/Patien t's Best Interest Dermatology Diagnoses Verruca vulgaris Pelon Bourne DO [address] [facility] [address] [place] [address] Scheduling Instructions To [facility] Specialty Diagnoses / Procedures Referred By Memo holman Referred To Contact MR IMAGING Diagnoses Dysmenorrhea Procedures MRI FEMALE PELVIS WO/W IVCON MRI PELVIS W/O & W/CONTRAST MATERIAL Devan Ryder MD [address] [place] [address] Mr Imaging Referral ID Status Reason Start Date Expiration Date Visits Requested Visits Authorized [id number] Pending Review Auto-Generat ed Referral 10/22/2021 11/21/2022 1 1 Specialty Diagnoses / Procedures Referred By Memo holman Referred To Contact [facility] Diagnoses High-tone pelvic floor dysfunction Procedures CONSULT TO PHYSICAL THERAPY PHYSICAL THERAPY EVALUATION HIGH COMPLEX 45 MINS Devan Ryder MD [address] [place] [address] [facility] [place] [address] [place] [address] Referral ID Status Reason Start Date Expiration Date Visits Requested Visits Authorized [id number] Pending Review Auto-Generat ed Referral 10/22/2021 10/22/2022 1 1 Referral ID Status Reason Start Date Expiration Date V isits Requested Visits Authorized [id number] Closed Auto-Generate d Referral 11/06/2021 02/04/2022 1 1 Additional Source Comments INFORMATION SOURCE (unrecogn ized section and content) DATE CREATED AUTHOR AUTHOR'S ORGANIZ ATION 09/08/2018 [facility] DATE CREATED AUTHOR AUTHOR'S ORGANIZ ATION [facility] DATE CREATED AUTHOR AUTHOR'S ORGANIZ ATION 02/01/2020 [facility] DATE CREATED AUTHOR AUTHOR'S ORGANIZ ATION 05/20/2020 [facility] DATE CREATED AUTHOR AUTHOR'S ORGANIZ ATION 08/01/2020 [facility] DATE CREATED AUTHOR AUTHOR'S ORGANIZ ATION 09/19/[facility] DATE CREATED AUTHOR AUTHOR'S ORGANIZ ATION 02/22/2021 [facility] DATE CREATED AUTHOR AUTHOR'S ORGANIZ ATION 02/20/2022 [facility] DATE CREATED AUTHOR AUTHOR'S ORGANIZ ATION 12/17/2022 [facility] DATE CREATED AUTHOR AUTHOR'S ORGANIZ ATION 07/14/2023 [facility] Reason for Visit (unrecogniz ed section and content) Specialty Diagnoses / Procedures Referred By Contac t Referred To Contact Physical Therapy / PHYSICAL THERAPY Diagnoses High-tone pelvic floor dysfunction [N94.89] Procedures NEW RS PT PELVIC PAIN/INCONT Devan Ryder MD [address] [place] [address] Don Clifford, PT [address] [place] [address] Referral ID Status Reason Start Date Expiration Date V isits Requested Visits Authorized [id number] Authorized 10/29/2021 07/10/2022 99 99 Reason Comments Physical Therapy Reason Comments Chest Pain Reason Comments Cough was seen in er, feel s like she is gettingworse, having fatigue, headaches, cough, denies fever Reason Comments Establish Care new patient Annual Exam OU enrollment nursin g Reason Comments Verrucous Vulgaris BI LATERAL Reason Comments Follow-up warts frozen off b/l hands Reason Comments Follow-up Warts on hand Reason Comments verruca vulgaris Warts on hand Reason Comments Care Coordination NPAF emailed Reason Comments New Patient Specialty Diagnoses / Procedures Referred By Contac t Referred To Contact Women's Health Specialist / GYNECOLOGY Diagnoses OVARIAN PAIN Procedures OFFICE/OUTPATIENT NEW HIGH MDM 60-74 MINUTES OFFICE/OUTPATIENT ESTABLISHED HIGH MDM 40-54 MIN NEW WHI PATIENT Devan Ryder MD [address] [place] [address] Devan Ryder MD [address] [place] [address] Referral ID Status Reason Start Date Expiration Date V isits Requested Visits Authorized [id number] Authorized 10/08/2021 07/10/2022 99 99 Reason Comments PT Eval Reason Comments Radiology MRI Specialty Diagnoses / Procedures Referred By Contac t Referred To Contact MR IMAGING Diagnoses Dysmenorrhea Procedures MRI FEMALE PELVIS WO/W IVCON MRI PELVIS W/O & W/CONTRAST MATERIAL Devan Ryder MD [address] [place] [address] Mr Imaging Referral ID Status Reason Start Date Expiration Date V isits Requested Visits Authorized [id number] Closed Auto-Generate d Referral 11/06/2021 02/04/2022 1 1 Reason Comments Erroneous encounter-disregard Reason Comments Pelvic Pain Specialty Diagnoses / Procedures Referred By Contac t Referred To Contact Women's Health Specialist / CLINICAL AIDE Diagnoses Follow-up exam MRI FOLLOW UP Procedures PHYS/QHP TELEPHONE EVALUATION 5-10 MIN VIDEO SPEC EST Self Devan Ryder MD [address] [place] [address] Referral ID Status Reason Start Date Expiration Date Visits Re quested Visits Authorized [id number] Closed 12/11/2021 07/10/2022 1 1 Reason Comments Pelvic Pain Specialty Diagnoses / Procedures Referred By Contac t Referred To Contact Women's Health Specialist / CLINICAL AIDE Diagnoses Follow-up after circumcision Follow up Procedures PHYS/QHP TELEPHONE EVALUATION 5-10 MIN VIDEO SPEC MD Trung Nichole Jessica, MD [address] [place] [address] Referral ID Status Reason Start Date Expiration Date Visits Re quested Visits Authorized [id number] Closed 02/26/2022 07/10/2022 1 1 Reason Comments Medication Refill Franklin Murrieta MD - 10/17/2019 2:38 PM EDTPJeovany hernandez RN - 10/17/2019 2:10 PM EDT ED Notes (unrecognized secti on and content) Associated Order(s): EKG 12-lead [facility] EMERGENCY DEPARTMENT ATTENDING NOTE: NAME: Mark Unger 19 y.o. CSN: [id number] PCP: Physician No History: Chief Complaint: Chest Pain HPI: The history was obtained from the patient. Mark is a 19 y.o. female who presents with a chief complaint of Chest Pain. The patient reports to the emergency department with concerns for midsternal chest pain associated with breathing in and out. She has had a cough and runny nose. The patient has no history of prior cardiopulmonary disease, no CAD cardiac dysrhythmia DVT PE or cancer no asthma or COPD. The patient has had symptoms for about 2 days. No vomiting diarrhea or abdominal pain reported there is no history of currently. There is history of leg swelling or pain coughing up blood or syncope. No trauma rash or noted fever. No recent travel. PMHx: No past medical history on file. PMSx: No past surgical history on file. FAM. Hx: No family history on file. SOC. Hx: Social History Socioeconomic History Marital status: Spouse name: Not on file Number of children: Not on file Years of education: Not on file Highest education level: Not on file Occupational History Not on file Social Needs Financial resource strain: Not on file Food insecurity Worry: Not on file Inability: Not on file Transportation needs Medical: Not on file Non-medical: Not on file Tobacco Use Smoking status: Not on file Substance and Sexual Activity Alcohol use: Not on file Drug use: Not on file Sexual activity: Not on file Lifestyle Physical activity Days per week: Not on file Minutes per session: Not on file Stress: Not on file Relationships Social connections Talks on phone: Not on file Gets together: Not on file Attends pentecostal service: Not on file Active member of club or organization: Not on file Attends meetings of clubs or organizations: Not on file Relationship status: Not on file Other Topics Concern Not on file Social History Narrative Not on file MEDs: No current outpatient medications on file prior to encounter. ALL: Allergies Allergen Reactions Shellfish Derived ROS: Review of Systems Positives and pertinent negatives as per HPI. All other systems were reviewed and are negative. Physical Exam: Patient Vitals for the past 24 hrs: BP Temp Temp src Pulse Resp SpO2 Height Weight 10/17/19 1615 94 13 97 % 10/17/19 1600 95 16 96 % 10/17/19 1413 136/75 98.4 F (36.9 C) Oral 86 100 % 10/17/19 1412 16 5' 6 63.5 kg (140 lb) Physical Exam Vitals signs and nursing note reviewed. Constitutional: Appearance: Normal appearance. HENT: Head: Normocephalic and atraumatic. Nose: Nose normal. Mouth/Throat: Mouth: Mucous membranes are moist. Pharynx: Oropharynx is clear. Eyes: General: Lids are normal. Vision grossly intact. Extraocular Movements: Extraocular movements intact. Conjunctiva/sclera: Conjunctivae normal. Neck: Musculoskeletal: Normal range of motion. No neck rigidity. Cardiovascular: Rate and Rhythm: Normal rate and regular rhythm. Heart sounds: Normal heart sounds. Pulmonary: Effort: Pulmonary effort is normal. No accessory muscle usage or respiratory distress. Breath sounds: Normal breath sounds. Abdominal: General: Abdomen is flat. Bowel sounds are normal. Palpations: Abdomen is soft. Tenderness: There is no abdominal tenderness. Musculoskeletal: Right lower leg: She exhibits no swelling. No edema. Left lower leg: She exhibits no swelling. No edema. Comments: No major joint disclocation or longbone fractures. Skin: General: Skin is warm and dry. Capillary Refill: Capillary refill takes less than 2 seconds. Findings: No rash (No acute rash on exposed skin). Neurological: General: No focal deficit present. Mental Status: She is alert. Cranial Nerves: Cranial nerves are intact. Motor: Motor function is intact. Psychiatric: Attention and Perception: Attention normal. Mood and Affect: Mood normal. Behavior: Behavior normal. Behavior is cooperative. Laboratory & Radiological Imaging (if done): Labs Reviewed CHEM 7 - Abnormal; Notable for the following components: Result Value Anion Gap 8 (*) All other components within normal limits Narrative: The eGFR should be used for monitoring renal function only and not for medication dosing. INFLUENZA A,B RAPID MOLECULAR - Normal Narrative: Test Method: Nucleic Acid Amplification HEPATIC FUNCTION PANEL - Normal HCG, SERUM, QUALITATIVE - Normal LIPASE - Normal D-DIMER, QUANTITATIVE - Normal Narrative: A D-dimer concentration of <0.5 micrograms per milliliter FEU is considered a low probability for pulmonary embolus (PE) and deep venous thrombosis (DVT). Results of this test should always be interpreted in conjunction with the patient's medical history,clinical presentation, and other findings. Clinical diagnosis should not be based on the results of the D-dimer alone. RESPIRATORY PCR PANEL CBC AND DIFFERENTIAL Narrative: The following orders were created for panel order CBC w/ Diff. Procedure Abnormality Status --------- ------ CBC Auto Differential[[id number]] Final result Please view results for these tests on the individual orders. TROPONIN CBC WITH AUTO DIFFERENTIAL XR Chest 1 View Final Result No radiographic evidence of acute abnormality. Workstation ID: [id number] Procedures: EKG 12-lead Date/Time: 10/17/2019 2:47 PM Performed by: Franklin Murrieta MD Authorized by: Franklin Murrieta MD Interpreted by ED attending physician Rhythm: sinus rhythm BPM: 89 Conduction: conduction normal Conduction: non-specific intraventricular conduction delay ST Segments: ST segments normal T Waves: T waves normal Clinical impression: abnormal ECG ED Course / Medical Decision Making: The patient presents to the emergency department with concerns for upper respiratory symptomatology. There is no history of recent travel to pandemic endemic areas. She describes midsternal chest pain associated with breathing. There is no history of trauma leg swelling or pain syncope or coughing up blood no personal history of asthma DVT PE CAD or other cardiopulmonary disease she is a non-smoker. Clinical examination benign. EKG shows no acute changes. Laboratory studies reviewed d- dimer cardiac enzymes and general labs negative chest x-ray negative. Flu testing negative. PCR upper respiratory pathogen panel pending. The patient does not meet [facility] criteria for emergency department COVID 19 screening. She requests a work excuse. She was discharged in stable condition and declined need for pain medications or symptomatic relief. A work excuse was given. She was discharged and given specific return to ER and follow-up instructions. She lives with her and he can take her home. COVID 19 discharge instructions were given and outpatient resources were also discussed. Clinical Impression: 1. Upper respiratory tract infection, unspecified type 2. Non-cardiac chest pain 3. Abnormal EKG Disposition: ED Disposition ED Disposition Condition Comment Discharge Stable Mark Unger discharged to home/self care in stable condition. Franklin Murrieta MD ED Attending Physician [facility] EMERGENCY [facility]PART[facility] (Please note that portions of this note have been completed with a voice recognition software. Efforts were made to correct any errors, but occasionally words are mis-transcribed.) Franklin Murrieta MD 10/17/19 1658 Reports new onset confusion and lethargy. Reports midsternal chest pain. Nausea last night. documented in this encounter Addendum Note - Pelon Bourne DO - 09/25/2020 8:19 AM EDTAddendum Note - Devan Thorne DO - 10/17/2020 9:08 PM EDTAddendum Note - Devan Thorne DO - 10/17/2020 9:08 PM EDT Miscellaneous Notes (unrecog nized section and content) Addended by: PELON BOURNE on: 09/25/2020 08:19 AM Modules accepted: Level of Service documented in this encounter Addended by: DEVAN THORNE on: 10/17/2020 09:08 PM Modules accepted: Orders documented in this encounter Addended by: DEVAN THORNE on: 10/17/2020 09:08 PM Modules accepted: Orders documented in this encounter Source Comments (unrecognize d section and content) In the event this informatio n is protected by the Federal Confidentiality of Alcohol and Drug Abuse Patient Records regulations: The Federal rules restrict any use of the information to criminally investigate or prosecute any alcohol or drug abuse patient.[facility] the event this information is protected by the Federal Confidentiality of Alcohol and Drug Abuse Patient Records regulations: The Federal rules restrict any use of the information to criminally investigate or prosecute any alcohol or drug abuse patient.[facility] Campus[facility] the event this information is protected by the Federal Confidentiality of Alcohol and Drug Abuse Patient Records regulations: The Federal rules restrict any use of the information to criminally investigate or prosecute any alcohol or drug abuse patient.[facility] Campus[facility] the event this information is protected by the Federal Confidentiality of Alcohol and Drug Abuse Patient Records regulations: The Federal rules restrict any use of the information to criminally investigate or prosecute any alcohol or drug abuse patient.[facility] Campus[facility] the event this information is protected by the Federal Confidentiality of Alcohol and Drug Abuse Patient Records regulations: The Federal rules restrict any use of the information to criminally investigate or prosecute any alcohol or drug abuse patient.[facility] Campus[facility] the event this information is protected by the Federal Confidentiality of Alcohol and Drug Abuse Patient Records regulations: The Federal rules restrict any use of the information to criminally investigate or prosecute any alcohol or drug abuse patient.[facility] Campus[facility] the event this information is protected by the Federal Confidentiality of Alcohol and Drug Abuse Patient Records regulations: The Federal rules restrict any use of the information to criminally investigate or prosecute any alcohol or drug abuse patient.[facility] Campus[facility] the event this information is protected by the Federal Confidentiality of Alcohol and Drug Abuse Patient Records regulations: The Federal rules restrict any use of the information to criminally investigate or prosecute any alcohol or drug abuse patient.[facility] Campus[facility] the event this information is protected by the Federal Confidentiality of Alcohol and Drug Abuse Patient Records regulations: The Federal rules restrict any use of the information to criminally investigate or prosecute any alcohol or drug abuse patient.[facility] Campus[facility] the event this information is protected by the Federal Confidentiality of Alcohol and Drug Abuse Patient Records regulations: The Federal rules restrict any use of the information to criminally investigate or prosecute any alcohol or drug abuse patient.[facility] Campus[facility] the event this information is protected by the Federal Confidentiality of Alcohol and Drug Abuse Patient Records regulations: The Federal rules restrict any use of the information to criminally investigate or prosecute any alcohol or drug abuse patient.[facility] CampusIn the event this information is protected by the Federal Confidentiality of Alcohol and Drug Abuse Patient Records regulations: The Federal rules restrict any use of the information to criminally investigate or prosecute any alcohol or drug abuse patient.[facility] Care Teams (unrecognized sec tion and content) FOR RECORDS PERTAINING TO PATIENTS WHO ARE OR HAVE BEEN ENROLLED IN A CHEMICAL DEPENDENCY/SUBSTANCEABUSE PROGRAM, SOME INFORMATION MAY BE OMITTED. This clinical summary was aggregated from multiple sources. Caution should be exercised in using it in the provision of clinical care. This summary normalizes information from multiple sources, and as a consequence, information in this document may materially change the coding, format and clinical context of patient data. In addition, data may be omitted in some cases. CLINICAL DECISIONS SHOULD BE BASED ON THE PRIMARY CLINICAL RECORDS. [facility] [employer] [facility]. provides no warranty or guarantee of the accuracy or completeness of information in this document.
[2023-08-10 09:40] LABS: Free T3 2.9 pg/mL (2.18-3.98); Prolactin 14.2 ng/mL; T4 Free Direct 0.86 ng/dL (0.76-1.46); Thyroid Stim Hormone (TSH) 1.42 uIU/mL (0.358-3.74)
[2023-08-10 09:56] LABS: Glucose 75GTT - Fasting 90 mg/dL (70-99)
[2023-08-10 09:56] LABS: Glucose 75GTT - 30 minutes 110 mg/dL (100-160)
[2023-08-10 10:15] LABS: Insulin 75GTT - 30 MIN 105.4 mU/L (Not Estab.)
[2023-08-10 10:17] LABS: T3 Total - Triiodothyronine 1.36 ng/mL (0.6-1.81)
[2023-08-10 10:17] LABS: Insulin 75GTT - Fasting 13.4 mU/L (2.6-37.6)
[2023-08-10 10:19] LABS: Prolactin 14.8 ng/mL; Thyroid Stim Hormone (TSH) 1.34 uIU/mL (0.358-3.74)
[2023-08-10 10:47] LABS: Glucose 93 mg/dL (74-106)
[2023-08-10 10:54] LABS: Glucose 75GTT - 60 minutes 102 mg/dL (100-160)
[2023-08-10 10:56] LABS: Insulin 75GTT - 60 min 127.2 mU/L (Not Estab)
[2023-08-10 10:56] LABS: Insulin 87.8 mU/L (2.6-37.6)
[2023-08-10 11:07] LABS: Prolactin 9.6 ng/mL; Thyroid Stim Hormone (TSH) 1.17 uIU/mL (0.358-3.74)
[2023-08-10 11:28] LABS: Glucose 75GTT - 120 minutes 87 mg/dL (70-140)
[2023-08-10 11:35] LABS: Insulin 75GTT - 120 min 63.4 mU/L (Not Estab.)
== END | disposition home or self-care (01) ==
PROVIDERS: PCP Nurse Practitioner Family; Referring Provider Obstetrics & Gynecology; Visit Provider Obstetrics & Gynecology
DX: E28.2 Polycystic ovarian syndrome (principal); E07.9 Disorder of thyroid, unspecified
CPT/HCPCS: 36415; 82947; 82951; 82952; 83525; 84146; 84439; 84443; 84480; 84481

== ENCOUNTER → 2023-08-22 | Outpatient (CLI) | payer OTHER, SELFPAY ==
--- OUTSIDE RECORDS SUMMARY | 2023-08-22 07:56 | XMS RPT_ITS | CCD ---
Author Name Unknown Address [address] [place] [address] Organization [facility] Care Team Providers Care Senior Mainframe Programmer Analyst Name Role Phone LUIS ANGELREANNA BRICEÑORYLEY Aleman [...] le Nishant, Stacie L Primary Care Provider [phone] DEVAN THORNE Attending Unavailable DILLARD, STACIE L Primary Care Unavailable DEVAN THORNE Attending Unavailable DILLARD, STACIE L Primary Care Unavailable DILLARD, STACIE L Attending Unavailable NO, PHYSICIAN Primary Care Unavailable DEVAN THORNE Attending Unavailable DILLARD, STACIE L Primary Care Unavailable Dillard, Stacie L Primary Care Provider [phone] Unavailable Primary Care Provider UnavailStacie Alfredo DO Primary Care Provider DEVAN RYDER Attending Unavailable DEVAN STEVENS NP Admitting Unavailable DEVAN STEVENS HANDLE MACHINE OPERATOR Primary Care Unavailable UNGERER, DEVAN HANDLE MACHINE OPERATOR Attending Unavailable UNGERER, DEVAN HANDLE MACHINE OPERATOR Admitting Unavailable UNGERER, DEVAN HANDLE MACHINE OPERATOR Primary Care Unavailable UNGERER, DEVAN HANDLE MACHINE OPERATOR Attending Unavailable UNGERER, DEVAN HANDLE MACHINE OPERATOR Admitting Unavailable UNGERER, DEVAN HANDLE MACHINE OPERATOR Primary Care Unavailable UNGERER, DEVAN HANDLE MACHINE OPERATOR Attending Unavailable UNGERER, DEVAN HANDLE MACHINE OPERATOR Admitting Unavailable UNGERER, DEVAN HANDLE MACHINE OPERATOR Primary Care Unavailable UNGERER, DEVAN HANDLE MACHINE OPERATOR Attending Unavailable UNGERER, DEVAN HANDLE MACHINE OPERATOR Admitting Unavailable UNGERER, DEVAN HANDLE MACHINE OPERATOR Primary Care Unavailable UNGERER, DEVAN HANDLE MACHINE OPERATOR Attending Unavailable Allergies Allergy Classification Reported Allergen(s) Allergy Type Date of Onset Reaction(s) Facility (14 sources) SHELLFISH CONTAINING PRODUCTS; Translations: [SHELLFISH CONTAINING PRODUCTS] Propensity to adverse reactions (disorder) 8 [facility] Repository (20 sources) Shellfish; Translations: [SHELLFISH DERIVED] Propensity to adverse reactions to drug (disorder) 0 [facility] Repository Medications Current Medications Medication Drug [...] 167.6 cm Devan Ryder MD Work Phone: [facility] 10-22-2021 11:08-0400 Body weight 65.32 kg Devan Ryder MD Work Phone: [facility] 10-22-2021 11:08-0400 Diastolic blood pressure 80 mm[Hg] Devan Ryder MD Work Phone: [facility] 10-22-2021 11:08-0400 Systolic blood pressure 130 mm[Hg] Devan Ryder MD Work Phone: [facility] 09-18-2020 07:52-0500 BMI (Body Mass Index) 24.05 kg/m[facility] 07:52-0500 Body Temperature 98.4 [degF] [facility] 09-18-2020 07:52-0500 Body weight 67.59 kg [facility] 09-18-2020 07:52-0500 BP Diastolic 76 mm[Hg] [facility] 09-18-2020 07:52-0500 BP Systolic 118 mm[Hg] [facility] 09-18-2020 07:52-0500 Height 167.6 cm [facility] 09-18-2020 07:52-0500 Pulse (Heart Rate) 71 /min [facility] 09-18-2020 07:52-0500 Pulse Oximetry 99 % [facility] 09-18-2020 07:52-0500 Respiratory Rate 16 /min [facility] 08-21-2020 14:28-0500 BMI (Body Mass Index) 24.13 kg/m2 [facility] 08-21-2020 14:28-0500 Body Temperature 98.4 [degF] [facility] 08-21-2020 14:28-0500 Body weight 65.77 kg [facility] 08-21-2020 14:28-0500 BP Diastolic 78 mm[Hg] [facility] 08-21-2020 14:28-0500 BP Systolic 122 mm[Hg] [facility] 08-21-2020 14:28-0500 Height 165.1 cm [facility] 08-21-2020 14:28-0500 Pulse (Heart Rate) 78 /min [facility] 08-21-2020 14:28-0500 Pulse Oximetry 98 % [facility] 08-21-2020 14:28-0500 Respiratory Rate 16 /min [facility] 07-31-2020 09:50-0500 BMI (Body Mass Index) 23.86 kg/m2 [facility] 07-31-2020 09:50-0500 Body Temperature 98.6 [degF] [facility] 07-31-2020 09:50-0500 Body weight 67.04 kg [facility] 07-31-2020 09:50-0500 BP Diastolic 64 mm[Hg] [facility] 07-31-2020 09:50-0500 BP Systolic 110 mm[Hg] [facility] 07-31-2020 09:50-0500 Height 167.6 cm [facility] 07-31-2020 09:50-0500 Pulse (Heart Rate) 89 /min [facility] 07-31-2020 09:50-0500 Pulse Oximetry 98 % [facility] 07-31-2020 09:50-0500 Respiratory Rate 16 /min [facility] 01-14-2020 09:17-0400 BMI (Body Mass Index) 23.34 kg/m2 [facility] 01-14-2020 09:17-0400 Body Temperature 97.59 [degF] [facility] 01-14-2020 09:17-0400 Body weight 65.59 kg [facility] 01-14-2020 09:17-0400 BP Diastolic 68 mm[Hg] [facility] 01-14-2020 09:17-0400 BP Systolic 114 mm[Hg] [facility] 01-14-2020 09:17-0400 Height 167.6 cm [facility] 01-14-2020 09:17-0400 Pulse (Heart Rate) 91 /min [facility] 01-14-2020 09:17-0400 Pulse Oximetry 96 % [facility] 01-14-2020 09:17-0400 Respiratory Rate 16 /min [facility] 10-22-2019 13:24-0400 BMI (Body Mass Index) 22.6 kg/m2 Angela Tamez [facility] 10-22-2019 13:24-0400 Body Temperature 98.49 [degF] Angela Tamez [facility] 10-22-2019 13:24-0400 Body weight 63.5 kg Angela Tamez [facility] 10-22-2019 13:24-0400 BP Diastolic 77 mm[Hg] Angelajean Tamez [facility] 10-22-2019 13:24-0400 BP Systolic 129 mm[Hg[facility] 13:24-0400 Height 167.6 [facility] 13:24-0400 Pulse (Heart Rate) 82 /min Angelajean Tamez [facility] 10-22-2019 13:24-0400 Pulse Oximetry 97 % [facility]-22-2019 13:24-0400 Respiratory Rate 16 /[facility]-17-[facility] 16:15-0400 Pulse (Heart Rate) 94 /min Franklin Murrieta [facility] 10-17-2019 16:15-0400 Pulse Oximetry 97 % Franklin Murrieta [facility] 10-17-2019 16:15-0400 Respiratory Rate 13 /min Franklin Murrieta [facility] 10-17-2019 14:13-0400 Body Temperature 98.4 [degF] Franklin Murrieta [facility] 10-17-2019 14:13-0400 BP Diastolic 75 mm[Hg] Franklin Murrieta [facility] 10-17-2019 14:13-0400 BP Systolic 136 mm[Hg] Franklin Murrieta [facility] 10-17-2019 14:12-0400 BMI (Body Mass Index) 22.6 kg/m2 Franklin Murrieta [facility] 10-17-2019 14:12-0400 Body weight 63.5 kg Franklin Murrieta [facility] 10-17-2019 14:12-0400 Height 167.6 cm Franklin Murrieta [facility] Encounters Encounter Date Encounter Type Care Provider Facility Start: 07-14-2023 End: 07-14-2023 ambulatory DEVAN Luis [facility] Start: 07-14-2023 End: 07-14-2023 ambulatory DEVAN HANDLE MACHINE OPERATOR [facility] Start: 06-15-2023 End: 06-15-2023 ambulatory DEVAN HANDLE MACHINE OPERATOR [facility] Start: 12-03-2022 End: 12-03-2022 ambulatory DEVAN HANDLE MACHINE OPERATOR [facility] Start: 11-25-2022 End: 11-25-2022 ambulatory DEVAN HANDLE MACHINE OPERATOR [facility] Start: 02-26-2022 Telephone encounter Devan De La [...] Start: 11-23-2026 Tetanus vaccination Tetanus: Every 10yrs [facility] Start: 11-23-2026 Urine microalbumin profile DTAP,TDAP,TD (7 - Td or Tdap) [facility] Start: 10-22-2024 PAP TESTING PAP TESTING [facility] Start: 03-11-2022 Influenza vaccination [facility] Start: 01-13-2021 History and physical examination, annual for health maintenance Wellness Visit [facility] Start: 10-14-2020 End: 10-14-2020 Office Visit 10/14/2020 Office Visit Primary Care Devan hTorne DO [address] [place] [phone] [facility] Start: 08-21-2020 End: 08-21-2020 Office Visit 08/21/2020 Office Visit Primary Care Devan Thorne DO [address] [address] [phone] [facility]ician [facility] Start: 03-11-2020 Influenza vaccination given Sequential Influenza Vaccine (#1) [facility] Start: 2020 PAP TESTING PAP TESTING [facility] Start: 03-11-2019 Influenza vaccination given Sequential Influenza Vaccine (#1) [facility] Start: 2017 CHLAMYDIA SCREENING (18-24) CHLAMYDIA SCREENING (18-24) [facility] Start: 2017 GC (GONORRHEA) SCREENING (18-24) GC (GONORRHEA) SCREENING (18-24) [facility] Start: 2017 Hepatitis C antibody, confirmatory test Hepatitis C Screening [facility] Start: 2017 HEPATITIS C SCREENING HEPATITIS C SCREENING [facility] Start: 2017 Hepatitis C screening Hepatitis C Screening [facility] Start: 2017 HIV SCREENING HIV SCREENING [facility] Start: 2015 COVID-19 Vaccine (1 of 2) COVID-19 Vaccine (1 of 2) [facility] Start: 2015 COVID-19 Vaccine (1) COVID-19 Vaccine (1) [facility] Start: 2014 HIV screening HIV Screening [facility] Start: 2013 PEDS TO ADULT TRANSITION ANNUAL ASSESSMENT PEDS TO ADULT TRANSITION ANNUAL ASSESSMENT [facility] Start: 2011 Adolescent depression screening assessment [facility] Start: 2011 Depression screening using PHQ-9 (Patient Health Questionnaire 9) score Depression Screening (PHQ-2/9) [facility] Start: 2011 PEDS TO ADULT TRANSITION INITIAL DISCUSSION PEDS TO ADULT TRANSITION INITIAL DISCUSSION [facility] Start: 2010 HPV VACCINE (1 - 2-dose series) HPV VACCINE (1 - 2-dose series) [facility] Start: 2010 Vaccination for human papillomavirus [facility] Start: 2009 MENINGOCOCCAL B: Consider based on risk (1 of 2 - Risk Bexsero 2-dose series) MENINGOCOCCAL B: Consider based on risk (1 of 2 - Risk Bexsero 2-dose series) [facility] Start: 2004 COVID-19 VACCINE (#1) COVID-19 VACCINE (#1) [facility] Start: 2004 COVID-19 VACCINE (1) COVID-19 VACCINE (1) [facility] Start: 2002 History and physical examination, annual for health maintenance Wellness Visit [facility] Start: 1999 COVID-19 VACCINE (#1) COVID-19 VACCINE (#1) [facility] Start: 1999 Depression screening using PHQ-9 (Patient Health Questionnaire 9) score Depression Screening (PHQ9) [facility] Start: 1999 Screening for Chlamydia trachomatis Chlamydia Screening [facility] Start: 1999 Screening for malignant neoplasm of cervix Pap Smear [facility] Start: 1999 Tetanus vaccination Tetanus: Every 10yrs [facility] Insertion intrauteri ne device iud INSERT INTRAUTERINE DEVICE Procedures Routine Dysmenorrhea 1 Occurrences starting 02/26/2022 [facility] Work Phone: Immunizations Immunization Date Immunization Notes Care Provider José Manuel stokes 04-24-2020 influenza virus vacc ine, unspecified formulation Devan Thorne [facility] 05-31-2017 hepatitis A vaccine, pediatric/adolescent dosage, 2 dose schedule [facility] 12-28-2016 hepatitis B vaccine, pediatric or pediatric/adolescent dosage [facility] 11-23-2016 hepatitis B vaccine, pediatric or pediatric/adolescent dosage [facility] 11-23-2016 meningococcal oligosaccharide (groups A, C, Y and W-135) diphtheria toxoid conjugate vaccine (MCV4O) Devan Ryder MD Work Phone: [facility] 11-23-2016 meningococcal polysaccharide (groups A, C, Y and W-135) diphtheria toxoid conjugate vaccine (MCV4P) [facility] 11-23-2016 tetanus toxoid, redu jeff diphtheria toxoid, and acellular pertussis vaccine, adsorbed [facility] 04-03-2004 diphtheria, tetanus toxoids and acellular pertussis vaccine [facility] 03-31-2004 diphtheria, tetanus toxoids and acellular pertussis vaccine, unspecified formulation Devan Ryder MD Work Phone: [facility] 03-31-2004 measles, mumps and rubella virus vaccine [facility] 03-31-2004 poliovirus vaccine, inactivated [facility] 07-19-2000 diphtheria, tetanus toxoids and acellular pertussis vaccine [facility] 07-19-2000 diphtheria, tetanus toxoids and acellular pertussis vaccine, unspecified formulation Devan Ryder MD Work Phone: [facility] 07-19-2000 haemophilus influenz ae type b vaccine, conjugate unspecified formulation [facility] 07-19-2000 haemophilus influenz ae type b vaccine, PRP-OMP conjugate Devan Ryder MD Work Phone: [facility] 07-19-2000 hepatitis B vaccine, pediatric or pediatric/adolescent dosage [facility] 07-19-2000 measles, mumps and rubella virus vaccine [facility] 07-19-2000 poliovirus vaccine, inactivated [facility] 1999 diphtheria, tetanus toxoids and acellular pertussis vaccine [facility] 1999 diphtheria, tetanus toxoids and acellular pertussis vaccine, unspecified formulation Devan Ryder MD Work Phone: [facility] 1999 haemophilus influenz ae type b vaccine, conjugate unspecified formulation [facility] 1999 hepatitis B vaccine, adult dosage [facility] 1999 hepatitis B vaccine, pediatric or pediatric/adolescent dosage Devan Ryder MD Work Phone: [facility] 1999 diphtheria, tetanus toxoids and acellular pertussis vaccine [facility] 1999 diphtheria, tetanus toxoids and acellular pertussis vaccine, unspecified formulation Devan Ryder MD Work Phone: [facility] 1999 haemophilus influenz ae type b vaccine, conjugate unspecified formulation [facility] 1999 hepatitis B vaccine, adult dosage [facility] 1999 hepatitis B vaccine, pediatric or pediatric/adolescent dosage Devan Ryder MD Work Phone: [facility] 1999 poliovirus vaccine, inactivated [facility] 1999 diphtheria, tetanus toxoids and acellular pertussis vaccine [facility] 1999 diphtheria, tetanus toxoids and acellular pertussis vaccine, unspecified formulation Devan Ryder MD Work Phone: [facility] 1999 haemophilus influenz ae type b vaccine, conjugate unspecified formulation [facility] 1999 haemophilus influenz ae type b vaccine, PRP-OMP conjugate Devan Ryder MD Work Phone: [facility] 1999 hepatitis B vaccine, adult dosage [facility] 1999 hepatitis B vaccine, pediatric or pediatric/adolescent dosage Deavn Ryder MD Work Phone: [facility] 1999 poliovirus vaccine, inactivated Stacie Dillard [facility] Payers Date Payer Category Payer Private Health Insurance CIGNA CIGNA PPO NETWORK GENERIC [id number] 2021-Present [phone] [address] [place] [address] PPO [id number] 2021 Private Health Insurance [id number] 2021 Private Health Insurance [id number] 2020 Unknown MMO [employer] S UPERMED PPO [id number] 2020-Present [id number] 2020 Unknown [id number] 2020 Unknown MMO [employer] UPERMED PPO [id number] 2020-Present [phone] [address] [place] [address] [id number] 2019 Private Health Insurance [id number] 2019 Private Health Insurance AETNA AETNA CHOICE POS/POSII/PREMIER CARE/PREMIER CARE PLUS xxxxxxxxxx 2019-Present xxxxxxxxxx [id number] 2017 Unknown [id number] 1999 Unknown [id number] [id number] 1999 Unknown [id number] [id number]8 1999 Unknown [id number] [id number]8 1999 Unknown [id number] [id number]8 1999 Unknown [id number] [id number] 1999 Unknown [id number] 2.16.840.1.713608.3.579.2.278 1999 Unknown [id number] 2.16.840.1.773364.3.579.2.903 1999 Unknown [id number] 2.16.840.1.826051.3.579.2.903 1999 Unknown [id number] 2.16.840.1.976600.3.579.2.903 1999 Unknown [id number] 2.16840.1.901883.3.579.2.900 1999 Unknown [id number] 2.16.840.1.935391.3.579.2.903 1999 Unknown [id number] 2.16.840.1.888121.3.579.2.903 1999 Unknown [id number] 2.16.840.1.175632.3.579.2.903 1999 Unknown [id number] 2.16840.1.108433.3.579.2.903 1999 Unknown [id number] 2.16.840.1.749390.3.579.2.651 1999 Unknown [id number] 2.16.840.1.201892.3.579.2.651 1999 Unknown [id number] 2.16.840.1.292101.3.579.2.651 1999 Unknown [id number] [id number] 1999 Unknown [id number] 2.16.840.1.654507.3.579.2.651 Unknown [id number] Social History Date Type Detail Facility Tobacco smoking stat us NHIS Unknown if ever smoked [facility] Start: 1999 Sex Assigned At Not on file [facility] Exposure to SARS-CoV -2 (event) Unable to assess [facility] Start: 05-10-2018 End: 10-22-2019 Tobacco smoking status NHIS Never smoker [facility] Start: 01-15-2020 End: 09-18-2020 Alcohol intake Lifetime non-drinker (finding) [facility] Start: 01-14-2020 End: 07-31-2020 History SDOH Alcohol Frequency 1 [facility] Start: 09-25-2021 End: 02-19-2022 Exposure to SARS-CoV-2 (event) Not sure [facility] Start: 10-22-2019 End: 07-31-2020 Tobacco use and exposure Never used [facility] Start: 12-01-2018 End: 10-22-2021 Alcohol intake Current non-drinker of alcohol (finding) [facility] Clinical Notes 12-24-2020 to 02-26-2022 Devan Ryder MD - 02/26/2022 10:30 AM Darlyn Clifford, PT - 02/19/2022 2:15 PM Darlyn Clifford, PT - 01/08/2022 10:10 AM Darlyn Clifford, PT - 12/25/2021 10:22 AM EDTPatient Instructions Note Date & Type Note Facility 02-26-2022 Note HNO ID: [id number] Author: Devan Ryder MD Service: ? Author [...] massage--focused on lower half and both sides. Roscoe good temporarily but didn't hurt Reviewed her [...] reasons I spent more than 0-20 minutes [id number]-[id number] with the patient and over half the time was devoted to counseling and/or coordination of care. Devan Ryder MD [facility] 02-26-2022 History of Presen t illness [...] massage--focused on lower half and both sides. Roscoe good temporarily but didn't hurt Reviewed her [...] reasons I spent more than 0-20 minutes aktl-lk-esum with the patient and over half the time was devoted to counseling and/or coordination of care. Devan Ryder MD documented in this encounter [facility] 02-19-2022 Note HNO ID: [id number] Author: Don Clifford PT Service: ? Author [...] Patient to be seen for Therapeutic exercise (84829);Neuromuscular re-education (17656);Manual therapy (15541);Therapeutic activities (93488);Self-longterm management (35565) PLAN FOR NEXT VISIT: D/c upon 60 days if no return; otherwise work on further PFM strengthening to prevent future decline SUBJECTIVE: . L lower abdomen pain is still there. Outer L hip also sore recently, feeling this is more HS related. Also has been sitting a lot at [facility]. Has been completing exercises about 1-2x [...] function/quality of l (more content not included)... [facility] 02-19-2022 History of Presen t illness Narrative [...] Patient to be seen for Therapeutic exercise (16577);Neuromuscular re-education (09514);Manual therapy (44080);Therapeutic activities (48845);Self-longterm management (13359) PLAN FOR NEXT VISIT: D/c upon 60 days if no return; otherwise work on further PFM strengthening to prevent future decline SUBJECTIVE: . L lower abdomen pain is still there. Outer L hip also sore recently, feeling this is more HS related. Also has been sitting a lot at [facility] [employer]. Has been completing exercises about 1-2x a [...] appropriate program for balance and coordination activity. Self-Usp Management: 1: review of HEP and wand [...] Don Clifford PT documented in this encounter [facility] 01-08-2022 Note HNO ID: [id number] Author: Don Clifford PT Service: ? Author [...] was facilitated with verbal and tactile cueing. Self-Usp Management: 1: Patient education on pelvic wand [...] Time Minutes (timed/untimed): 45 Don Clifford, PT [facility] 01-08-2022 History of Presen t illness Narrative [...] was facilitated with verbal and tactile cueing. Self-Usp Management: 1: Patient education on pelvic wand [...] Don Clifford PT documented in this encounter [facility] 01-01-2022 Note HNO ID: [id number] Author: Don Clifford PT Service: ? Author [...] Time Minutes (timed/untimed): 42 Don Clifford PT [facility] 12-25-2021 Note HNO ID: [id number] Author: Don Clifford PT Service: ? Author [...] needed progress hip and core stability SUBJECTIVE: Roscoe a little bit of R hip soreness [...] Time Minutes (timed/untimed): 40 Don Darrin, PT [facility] 12-25-2021 History of Presen t illness Narrative [...] needed progress hip and core stability SUBJECTIVE: Roscoe a little bit of R hip soreness [...] Don Clifford PT documented in this encounter [facility] 12-18-2021 Note HNO ID: [id number] Author: Don Clifford PT Service: ? Author [...] 1: STM/MFR to PFM intervaginally 2: pinch hand shoes sewer and sweep technique to promote TP release [...] Time Minutes (timed/untimed): 42 Don Clifford, PT [facility] 12-18-2021 History of Presen t illness Narrative [...] 1: STM/MFR to PFM intervaginally 2: pinch hand shoes sewer and sweep technique to promote TP release [...] Don Clifford PT documented in this encounter [facility] 12-11-2021 Miscellaneous Notes Error, wrong patient, please disregard documented in this encounter [facility] 12-11-2021 History of Presen t illness Narrative [...] neg I spent more than 0-20 minutes qflc-gr-[id number] with the patient and over half the time was devoted to counseling and/or coordination of care. Devan Ryder MD documented in this encounter [facility] 12-02-2021 History of Presen t illness Narrative [...] TIME: 7:26 PM documented in this encounter [facility] 10-29-2021 Note HNO ID: [id number] Author: Don Clifford PT Service: ? Author [...] Planned: 12 Planned Treatment Interventions: Therapeutic exercise (63359);Neuromuscular re-education (64676);Manual therapy (66922);Therapeutic activities (02595);Self-longterm management (25741) PLAN FOR NEXT VISIT: abdominal and internal [...] been very flexible. 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 [facility] 10-29-2021 History of Presen t illness Narrative [...] Planned: 12 Planned Treatment Interventions: Therapeutic exercise (62766);Neuromuscular re-education (91594);Manual therapy (61784);Therapeutic activities (33433);Self-longterm management (78337) PLAN FOR NEXT VISIT: abdominal and internal [...] been very flexible. MRI was taken at [facility], finding minor separation at growth [...] 1: STM/MFR to PFM intervaginally 2: pinch hand shoes sewer and sweep technique to promote TP release [...] Don Clifford PT documented in this encounter [facility] 10-22-2021 Instructions Devan Ryder MD - 10/22/2021 11:53 AM EDT 1) Start pelvic floor physical therapy 2) Start daily Aygestin 5 mg daily 3) Consider trying abdominal trigger point injections 4) Follow up in 2 months Pelvic Floor Physical Therapy Locations Appointments [phone] [facility] My[facility]ascial [facility]( also known as Pelvic [...] messages will go to the RN or geophysical laboratory director first to be addressed. For urgent Questions: call my trade union secretary with questions, appts related to chronic pelvic pain, Tanya Izaguirre ,fax [phone] For refills, I prefer these be sent through [facility] We also have a nurse coordinator Olimpia Rossi RN (CELL) My schedule: I see patients in office Tuesday/Tuesday/ and Fridays: virtual visits only documented in this encounter [facility] 10-22-2021 History of Presen t illness Narrative [...] urgency on menses. She started to see cafeteria attendant to be evaluated with menstrual migraines. Usually [...] hamstring still bothers her. 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 SUBJECTIVE [...] unpredictable). LMP 10/10/2021. I took BC pill [id number], but hated and feel like it made pain worse. Menstrual regulation tried: Condom and OCP [place]: sexually active FSFI6: 23 (<19 can indicate [...] US PELVIS NON OB COMPLETE: 08/23/2018 (at [facility]) HISTORY: left sided pelvic pain with no [...] 4 - Moderate documented in this encounter [facility] 10-09-2021 Miscellaneous Notes NPAF emailed for appointment with Dr. Devan Ryder on 10/22 @ 11:00. Olimpia Rossi RN documented in this encounter [facility] 12-24-2020 Telephone encounter Note Lmoc to please call the office to schedule. lr [facility] 12-24-2020 Miscellaneous Notes Lmoc to please call the office to schedule. lr Please call patient and have her schedule a well woman exam in the next 1-2 months. She has seen Dr[address] Thorne before, so schedule with Dr. Thorne. documented in this encounter [facility] 12-24-2020 Telephone encounter Note Please call patient and have her schedule a well woman exam in the next 1-2 months. She has seen Dr. Thorne before, so schedule with Dr. Thorne. [facility] Diagnosis High-tone pelvic floor dysfunction- Primary Other specified disorders of female genital organs documented in this encounter [facility] note* Diagnosis Dysmenorrhea documented in this encounter [facility] note* Diagnosis Dysmenorrhea- Primary Chronic pelvic pain in female Unspecified symptom associated with female genital organs documented in this encounter [facility] note* Diagnosis High-tone pelvic floor dysfunction- Primary Other specified disorders of female genital organs documented in this encounter [facility] note* Diagnosis High-tone pelvic floor dysfunction- Primary Other specified disorders of female genital organs documented in this encounter [facility] note* Diagnosis High-tone pelvic floor dysfunction- Primary Other specified disorders of female genital organs Muscle spasm Spasm of muscle Dysmenorrhea documented in this encounter [facility] note* Diagnosis Encounter for contraceptive management, unspecified type Menstrual migraine without status migrainosus, not intractable documented in this encounter [facility] for referral (narrative)* Outpatient Procedure (Routine) - Pending Review Specialty Diagnoses / Procedures Referred By Memo holman Referred To Contact [facility] Diagnoses Dysmenorrhea Procedures INSERT INTRAUTERINE DEVICE LEVONORGESTREL IU 52MG 5 YR INSERT INTRAUTERINE DEVICE Devan Ryder MD [address] [place] [address] [address] [place] [address] Referral ID Status Reason Start Date Expiration Date Visits Requested Visits Authorized [id number] Pending Review Auto-Generat ed Referral 02/26/2022 02/26/2023 1 1 [facility] Summary Purpose Family History No Family History Records FoundNo Family History Records FoundNo Family History Records FoundNo Family History Records FoundNo Family History Records FoundNo Family History Records FoundNo Family History Records FoundNo Family History Records FoundNo Family History Records FoundNo Family History Records FoundNo Family History Records Found Advance Directives No Advanced Directives Records FoundDocuments on File Type Date Recorded 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 Advance Directives and Livin g Will 10/17/2019 2:26 PM Documents on File Type Date Recorded 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 If you [...] sent through Care Everywhere. * Chest Pain (Swiss) * URI (Upper Respiratory Infection) (Swiss) * Coronavirus Disease COVID-19: Isolation (Swiss) documented in this encounter Assessments Diagnosis Upper [...] Mark Unger is a 19 y.o. female. 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 Devan Thorne DO, PGY2 [facility] documented in this encounter* Charley Sidhu [...] resolved. Devan Thorne DO, PGY2 [facility] documented in this encounter* Charley Sidhu [...] resolved. Devan Thorne DO, PGY2 [facility] documented in this encounter* Charley Sidhu [...] resolved. Devan Thorne DO, PGY2 [facility] documented in this encounter* Charley Sidhu [...] resolved. Devan Thorne DO, PGY2 [facility] documented in this encounter* Charley Sidhu [...] resolved. Devan Thorne DO, PGY2 [facility] documented in this encounter* Devan Thorne, [...] edema. Left lower leg: No edema. Comments: Labor Standards Director strength 5/5 bilaterally Skin: General: Skin is [...] resolves. Devan Thorne DO, PGY2 [facility] documented in this encounter* Pelon Bourne [...] edema. Left lower leg: No edema. Comments: Labor Standards Director strength 5/5 bilaterally Skin: General: Skin is [...] resolves. Devan Thorne DO, PGY2 [facility] documented in this encounter* Pelon Bourne [...] edema. Left lower leg: No edema. Comments: Labor Standards Director strength 5/5 bilaterally Skin: General: Skin is [...] resolves. Devan Thorne DO, PGY2 [facility] documented in this encounter* Devan Thorne [...] edema. Left lower leg: No edema. Comments: Labor Standards Director strength 5/5 bilaterally Skin: General: Skin is [...] resolves. Devan Thorne DO, PGY2 [facility] documented in this encounter Instructions * [...] doctor may recommend that you use an vdib-mnq-irhoasn treatment. Or your doctor may prescribe a [...] Log into your personal health record on [email or web address] and enter K886 in the Education box to learn more about Warts: Care Instructions. Current as of: January 10, 2020 Content Version: 12.7 WeddingLovely. Care instructions adapted under license by your healthcare professional. If you have questions about a medical condition or this instruction, always ask your healthcare professional. [employer] disclaims any warranty or liability for your [...] doctor may recommend that you use an rivu-bgv-prgaruc treatment. Or your doctor may prescribe a [...] Log into your personal health record on [email or web address] and enter K886 in the Education box to learn more about Warts: Care Instructions. Current as of: January 10, 2020 Content Version: 12.7 [employer]Lovely. Care instructions adapted under license by your healthcare professional. If you have questions about a medical condition or this instruction, always ask your healthcare professional. [employer] disclaims any warranty or liability for your [...] doctor may recommend that you use an nagy-tur-ugzcode treatment. Or your doctor may prescribe a [...] Log into your personal health record on [email or web address] and enter K886 in the Education box to learn more about Warts: Care Instructions. Current as of: January 10, 2020 Content Version: 12.7 Skuid, [employer]. Care instructions adapted under license by your healthcare professional. If you have questions about a medical condition or this instruction, always ask your healthcare professional. [employer] disclaims any warranty or liability for your [...] doctor may recommend that you use an rzlt-hwk-wabxhed treatment. Or your doctor may prescribe a [...] Log into your personal health record on [email or web address] and enter K886 in the Education box to learn more about Warts: Care Instructions. Current as of: January 10, 2020 Content Version: 12.7 WeddingLovely. Care instructions adapted under license by your healthcare professional. If you have questions about a medical condition or this instruction, always ask your healthcare professional. [employer]ov[employer] disclaims any warranty or liability for your use of this information. documented in this encounter Reason for Referral Status Reason Specialty Diagnoses / Procedures Referred By Contact Referred To Contact Authorized Specialty Services Required/Patien t's Best Interest Dermatology Diagnoses Verruca vulgaris Pelon Bourne DO [address] [facility] [address] [place] [address] Scheduling Instructions To [facility] Specialty Diagnoses / Procedures Referred By Memo holman Referred To Contact MR IMAGING Diagnoses Dysmenorrhea Procedures MRI FEMALE PELVIS WO/W IVCON MRI PELVIS W/O & W/CONTRAST MATERIAL Devan Ryder MD [address] [place] [address] Mr Imaging Referral ID Status Reason Start Date Expiration Date Visits Requested Visits Authorized [id number] Pending Review Auto-Generat ed Referral 10/22/2021 11/21/2022 1 1 Specialty Diagnoses / Procedures Referred By Memo holman Referred To Contact [facility] Diagnoses High-tone pelvic floor dysfunction Procedures CONSULT TO PHYSICAL THERAPY PHYSICAL THERAPY EVALUATION HIGH COMPLEX 45 MINS Devan Ryder MD [address] [place] [address] [facility] [address] [place] [address] Referral ID Status Reason Start Date Expiration Date Visits Requested Visits Authorized [id number] Pending Review Auto-Generat ed Referral 10/22/2021 10/22/2022 1 1 Referral ID Status Reason Start Date Expiration Date V isits Requested Visits Authorized [id number] Closed Auto-Generate d Referral 11/06/2021 02/04/2022 1 1 Additional Source Comments INFORMATION SOURCE (unrecogn ized section and content) DATE CREATED AUTHOR AUTHOR'S ORGANIZ ATION 09/08/2018 [facility] DATE CREATED AUTHOR AUTHOR'S ORGANIZ ATION 10/22/[facility] DATE CREATED AUTHOR AUTHOR'S ORGANIZ ATION 02/01/2020 [facility] DATE CREATED AUTHOR AUTHOR'S ORGANIZ ATION 05/20/2020 [facility] DATE CREATED AUTHOR AUTHOR'S ORGANIZ ATION 08/01/2020 [facility] DATE CREATED AUTHOR AUTHOR[facility]S ORGANIZ ATION [facility] DATE CREATED AUTHOR AUTHOR'S ORGANIZ ATION 02/22/2021 [facility] DATE CREATED AUTHOR AUTHOR'S ORGANIZ ATION 02/20/2022 [facility] DATE CREATED AUTHOR AUTHOR'S ORGANIZ ATION 12/17/2022 [facility] DATE CREATED AUTHOR AUTHOR'S ORGANIZ ATION 07/14/2023 [facility] Reason for Visit (unrecogniz ed section and content) Specialty Diagnoses / Procedures Referred By Contac t Referred To Contact Physical Therapy / PHYSICAL THERAPY Diagnoses High-tone pelvic floor dysfunction [N94.89] Procedures NEW RS PT PELVIC PAIN/INCONT Devan Ryder MD [address] [place] [address] Don Clifford, PT [address] [place] [address] Referral ID Status Reason Start Date Expiration Date V isits Requested Visits Authorized [id number] Authorized 10/29/2021 07/10/2022 99 99 Reason Comments [...] PATIENT Devan Ryder MD [address] [place] [address] Devan Ryder MD [address] [place] [address] Referral ID Status Reason Start Date Expiration Date V isits Requested Visits Authorized [id number] Authorized 10/08/2021 07/10/2022 99 99 Reason Comments PT Eval Reason Comments Radiology MRI Specialty Diagnoses / Procedures Referred By Contac t Referred To Contact MR IMAGING Diagnoses Dysmenorrhea Procedures MRI FEMALE PELVIS WO/W IVCON MRI PELVIS W/O & W/CONTRAST MATERIAL Devan Ryder MD [address] [place] [address] Mr Imaging Referral ID Status Reason Start Date Expiration Date V isits Requested Visits Authorized [id number] Closed Auto-Generate d Referral 11/06/2021 02/04/2022 1 1 Reason Comments Erroneous encounter-disregard Reason Comments Pelvic Pain Specialty Diagnoses / Procedures Referred By Contac t Referred To Contact Women's Health Specialist / SENIOR NETWORK ARCHITECT Diagnoses Follow-up exam MRI FOLLOW UP Procedures PHYS/QHP TELEPHONE EVALUATION 5-10 MIN VIDEO SPEC EST Self Devna Ryder MD [address] [place] [address] Referral ID Status Reason Start Date Expiration Date Visits Re quested Visits Authorized [id number] Closed 12/11/2021 07/10/2022 1 1 Reason Comments Pelvic Pain Specialty Diagnoses / Procedures Referred By Contac t Referred To Contact Women's Health Specialist / SENIOR NETWORK ARCHITECT Diagnoses Follow-up after circumcision Follow up Procedures PHYS/QHP TELEPHONE EVALUATION 5-10 MIN VIDEO SPEC MD Trung Nichole Jessica, MD [address] [place] [address] Referral ID Status Reason Start Date Expiration Date Visits Re quested Visits Authorized [id number] Closed 02/26/2022 07/10/2022 1 1 Reason Comments Medication Refill Franklin Murrieta MD - 10/17/2019 2:38 PM EDTPJeovany hernandez RN - 10/17/2019 2:10 PM EDT ED Notes (unrecognized secti on and content) Associated Order(s): EKG 12-lead [facility] ATTENDING NOTE: NAME: Mark Unger 19 y.o. CSN: [id number] PCP: Physician No History: Chief Complaint: Chest [...] file Gets together: Not on file Attends amish service: Not on file Active member of [...] Procedure Abnormality Status --------- ------ CBC Auto Differential[[id number]] Final result Please view results for these [...] panel pending. The patient does not meet [facility] criteria for emergency department COVID 19 screening. [...] condition. Franklin Murrieta MD ED Attending Physician [facility] (Please note that portions [...] or prosecute any alcohol or drug abuse patient.[facility] the event this information is protected by the Federal Confidentiality of Alcohol and Drug Abuse Patient Records regulations: The Federal rules restrict any use of the information to criminally investigate or prosecute any alcohol or drug abuse patient.[facility] the event this information is protected by the Federal Confidentiality of Alcohol and Drug Abuse Patient Records regulations: The Federal rules restrict any use of the information to criminally investigate or prosecute any alcohol or drug abuse patient.[facility] the event this information is protected by the Federal Confidentiality of Alcohol and Drug Abuse Patient Records regulations: The Federal rules restrict any use of the information to criminally investigate or prosecute any alcohol or drug abuse patient.[facility] the event this information is protected by the Federal Confidentiality of Alcohol and Drug Abuse Patient Records regulations: The Federal rules restrict any use of the information to criminally investigate or prosecute any alcohol or drug abuse patient.[facility] the event this information is protected by the Federal Confidentiality of Alcohol and Drug Abuse Patient Records regulations: The Federal rules restrict any use of the information to criminally investigate or prosecute any alcohol or drug abuse patient.[facility] the event this information is protected by the Federal Confidentiality of Alcohol and Drug Abuse Patient Records regulations: The Federal rules restrict any use of the information to criminally investigate or prosecute any alcohol or drug abuse patient.[facility] the event this information is protected by the Federal Confidentiality of Alcohol and Drug Abuse Patient Records regulations: The Federal rules restrict any use of the information to criminally investigate or prosecute any alcohol or drug abuse patient.[facility] the event this information is protected by the Federal Confidentiality of Alcohol and Drug Abuse Patient Records regulations: The Federal rules restrict any use of the information to criminally investigate or prosecute any alcohol or drug abuse patient.[facility] the event this information is protected by the Federal Confidentiality of Alcohol and Drug Abuse Patient Records regulations: The Federal rules restrict any use of the information to criminally investigate or prosecute any alcohol or drug abuse patient.[facility] the event this information is protected by the Federal Confidentiality of Alcohol and Drug Abuse Patient Records regulations: The Federal rules restrict any use of the information to criminally investigate or prosecute any alcohol or drug abuse patient.[facility] the event this information is protected by the Federal Confidentiality of Alcohol and Drug Abuse Patient Records regulations: The Federal rules restrict any use of the information to criminally investigate or prosecute any alcohol or drug abuse patient.[facility] Care Teams (unrecognized sec tion and content) [...] BE BASED ON THE PRIMARY CLINICAL RECORDS. [facility]. provides no warranty or guarantee of the accuracy or completeness of information in this document.
[2023-08-22 08:47] LABS: Hematocrit 41.7 % (37-47); Hemoglobin 13.7 g/dL (12.0-15.0); Mean Corp Hgb Conc 32.9 g/dL (32-36); Mean Corpuscular Hgb 29.1 pg (27.0-32.0); Mean Corpuscular Volume 88.5 fL (81-99); Mean Platelet Vol. 9.4 fl (6.2-12.0); Platelet Count 330 K/mm3 (150-450); RBC Distribution Width CV 12.5 % (11.6-14.6); RBC Distribution Width SD 40.9 fl (35.1-43.9); Red Blood Count 4.71 M/mm3 (4.2-5.4); White Blood Count 6.8 K/mm3 (4.4-11.0)
[2023-08-22 09:38] LABS: Vitamin B12 360 pg/mL (211-911); Vitamin D,25 Hydroxy 28.8 ng/mL
[2023-08-22 09:47] LABS: Estradiol 26.6 pg/mL; Follicle Stimulating Hormone 8.1 mIU/mL; Luteinizing Hormone 5.3 mIU/mL
[2023-08-26 16:09] LABS: 17-Hydroxyprogesterone 58 ng/dL (.)
[2023-08-29 11:08] LABS: Androstenedione 192 ng/dL (41-262); Anti-Mullerian Hormone,Serum 4.68 ng/mL (.); Cancer Antigen 125 13.3 U/mL (0.0-38.1); Testosterone, % Free 2.48 % (0.50-2.80); Testosterone, Free 0.87 ng/dL (0.10-0.85); Testosterone, Total 35 ng/dL (13-71)
== END | disposition home or self-care (01) ==
PROVIDERS: PCP Nurse Practitioner Family; Referring Provider Obstetrics & Gynecology; Visit Provider Obstetrics & Gynecology
DX: E28.2 Polycystic ovarian syndrome (principal); E53.8 Deficiency of other specified B group vitamins; E55.9 Vitamin D deficiency, unspecified; R10.2 Pelvic and perineal pain
CPT/HCPCS: 36415; 82157; 82306; 82533; 82607; 82627; 82670; 83001; 83002; 83498; 83516; 84402; 84403; 85027; 86304; 82626

== ENCOUNTER → 2023-11-18 | Outpatient (CLI) | payer OTHER, SELFPAY ==
[2023-11-18 09:59] LABS: Glucose 99 mg/dL (74-106)
[2023-11-19 12:09] LABS: Insulin Level 9.3 uIU/mL (2.6-24.9)
== END | disposition home or self-care (01) ==
PROVIDERS: PCP Nurse Practitioner Family; Referring Provider Obstetrics & Gynecology; Visit Provider Obstetrics & Gynecology
DX: Z13.1 Encounter for screening for diabetes mellitus (principal); R73.09 Other abnormal glucose
CPT/HCPCS: 36415; 82947; 83525

== ENCOUNTER → 2023-12-03 | Outpatient (CLI) | payer OTHER, SELFPAY ==
[2023-12-03 09:41] LABS: Estradiol 25.1 pg/mL; Follicle Stimulating Hormone 7.6 mIU/mL
[2023-12-06 12:57] LABS: Vitamin B12 632 pg/mL (211-911); Vitamin D,25 Hydroxy 31.7 ng/mL
[2023-12-09 13:08] LABS: Sex Hormone-binding Globulin 46.8 nmol/L (24.6-122.0); Testosterone, % Free 2.43 % (0.50-2.80); Testosterone, Total 33 ng/dL (13-71)
== END | disposition home or self-care (01) ==
LOC: LAB 07:50
PROVIDERS: PCP Nurse Practitioner Family; Referring Provider Obstetrics & Gynecology; Visit Provider Obstetrics & Gynecology
DX: E53.8 Deficiency of other specified B group vitamins (principal); E55.9 Vitamin D deficiency, unspecified; E28.2 Polycystic ovarian syndrome; N92.6 Irregular menstruation, unspecified
CPT/HCPCS: 36415; 82306; 82607; 82627; 82670; 82746; 83001; 84270; 84402; 84403; 82626

== ENCOUNTER → 2023-12-09 | Outpatient (CLI) | payer OTHER, SELFPAY | END | disposition home or self-care (01) | LOC: LAB 08:03 | PROVIDERS: PCP Nurse Practitioner Family; Referring Provider Obstetrics & Gynecology; Visit Provider Obstetrics & Gynecology | DX: E28.2 Polycystic ovarian syndrome (principal); N92.6 Irregular menstruation, unspecified | CPT/HCPCS: 36415; 82533 ==

== ENCOUNTER → 2024-02-08 | Outpatient (CLI) | payer OTHER, SELFPAY ==
[2024-02-09 08:12] LABS: HCG BETA-SUBUNIT QUANT. 162 mIU/mL (.)
== END | disposition home or self-care (01) ==
PROVIDERS: PCP Nurse Practitioner Family; Referring Provider Obstetrics & Gynecology; Visit Provider Obstetrics & Gynecology
DX: N92.6 Irregular menstruation, unspecified (principal)
CPT/HCPCS: 36415; 84702

== ENCOUNTER → 2024-02-10 | Outpatient (CLI) | payer OTHER, SELFPAY ==
[2024-02-10 09:12] LABS: Estradiol 283.2 pg/mL
[2024-02-10 09:17] LABS: hCG Titer Quant., Serum 267 mIU/mL (1-3)
[2024-02-11 04:08] LABS: PROGESTERONE 25.6 ng/mL (.)
[2024-02-15 13:08] LABS: Testosterone, % Free 1.31 % (0.50-2.80); Testosterone, Free 0.68 ng/dL (0.10-0.85); Testosterone, Total 52 ng/dL (13-71)
== END | disposition home or self-care (01) ==
PROVIDERS: PCP Nurse Practitioner Family; Referring Provider Obstetrics & Gynecology; Visit Provider Obstetrics & Gynecology
DX: N92.6 Irregular menstruation, unspecified (principal); E28.9 Ovarian dysfunction, unspecified
CPT/HCPCS: 36415; 82627; 82670; 84144; 84402; 84403; 84702; 82626

== ENCOUNTER → 2024-02-17 | Outpatient (CLI) | payer OTHER, SELFPAY ==
[2024-02-17 10:35] LABS: Estradiol 291.7 pg/mL
[2024-02-17 10:53] LABS: hCG Titer Quant., Serum 2602 mIU/mL (1-3)
[2024-02-18 10:42] LABS: PROGESTERONE 22.6 ng/mL (.)
== END | disposition home or self-care (01) ==
LOC: LAB 09:25
PROVIDERS: PCP Nurse Practitioner Family; Referring Provider Obstetrics & Gynecology; Visit Provider Obstetrics & Gynecology
DX: E28.9 Ovarian dysfunction, unspecified (principal); N92.6 Irregular menstruation, unspecified
CPT/HCPCS: 36415; 82670; 84144; 84702

== ENCOUNTER 2024-03-02 10:02 | Outpatient (RCR) | payer OTHER, SELFPAY ==
[2024-03-03 14:09] LABS: PROGESTERONE 16.1 ng/mL (.)
== END 2024-03-02 18:00 | disposition home or self-care (01) ==
LOC: LAB 10:02
PROVIDERS: PCP Nurse Practitioner Family; Referring Provider Obstetrics & Gynecology; Visit Provider Obstetrics & Gynecology
DX: E28.9 Ovarian dysfunction, unspecified (principal)
CPT/HCPCS: 36415; 84144

== ENCOUNTER 2024-03-30 09:12 | Outpatient (RCR) | payer OTHER, SELFPAY ==
[2024-03-17 08:11] LABS: PROGESTERONE 35.6 ng/mL (.)
[2024-03-31 10:09] LABS: PROGESTERONE 29.7 ng/mL (.)
== END 2024-03-30 18:00 | disposition home or self-care (01) ==
LOC: LAB 09:12
PROVIDERS: PCP Nurse Practitioner Family; Referring Provider Obstetrics & Gynecology; Visit Provider Obstetrics & Gynecology
DX: E28.9 Ovarian dysfunction, unspecified (principal)
CPT/HCPCS: 36415; 84144

== ENCOUNTER 2024-04-28 07:41 | Outpatient (RCR) | payer OTHER, SELFPAY ==
[2024-04-14 04:08] LABS: PROGESTERONE 40.1 ng/mL (.)
[2024-04-29 07:07] LABS: PROGESTERONE 37.4 ng/mL (.)
== END 2024-04-28 18:00 | disposition home or self-care (01) ==
LOC: LAB 07:41
PROVIDERS: PCP Nurse Practitioner Family; Referring Provider Obstetrics & Gynecology; Visit Provider Obstetrics & Gynecology
DX: E28.9 Ovarian dysfunction, unspecified (principal)
CPT/HCPCS: 36415; 84144

== ENCOUNTER 2024-10-24 19:09 | Inpatient (IN) | payer OTHER, SELFPAY ==
[2024-10-24 19:10] VITALS: BMI 33.0
[2024-10-24 19:54] VITALS: BP 132/76; PULSE 83; RESP 16; TEMP 36.7
[2024-10-24 19:57] VITALS: BP 120/67; PULSE 85
[2024-10-24 20:17] LABS: Absolute Lymphocyte Count 1.37 X10^3/uL (0.83-4.51); Absolute Neutrophil Count 10.4 X10^3/uL (2.0-7.7); Basophil# 0.03 X10^3/uL; Basophil% 0.2 % (0-1); Eosinophil# 0.07 X10^3/uL; Eosinophils% 0.5 % (0-5); Hematocrit 35.4 % (37-47); Hemoglobin 12.4 g/dL (12.0-15.0); Lymphocyte # 1.37 X10^3/ul (0.83-4.51); Lymphocyte % 10.6 % (19-41); Mean Corpuscular Hgb 32.7 pg (27.0-32.0); Mean Corpuscular Volume 93.4 fL (81-99); Mean Platelet Vol. 10.1 fl (6.2-12.0); NRBC Flagged by Analyzer 0 % (0-5); Neutrophil # 10.42 X10^3/uL (2.7-7.7); Neutrophil % 80.7 % (47-70); Platelet Count 228 K/mm3 (150-450); RBC Distribution Width CV 14.4 % (11.6-14.6); RBC Distribution Width SD 48.8 fl (35.1-43.9); Red Blood Count 3.79 M/mm3 (4.2-5.4); White Blood Count 12.9 K/mm3 (4.4-11.0)
[2024-10-24] MEDS: Lactated Ringers 1,000 ML 999 ML IV (20:19)
[2024-10-24 20:26] LABS: Syphilis Antibodies Nonreactive (Nonreactive)
[2024-10-24] MEDS: miSOPROStol 25 MCG TABLET PO (20:56)
[2024-10-24] MEDS: Mag Hydrox/Al Hydrox/Simeth 30 ML UDC PO (23:05)
[2024-10-24 23:36] VITALS: BP 108/57; PULSE 84; RESP 16; TEMP 36.6; O2SAT 98
[2024-10-25] VITALS (51 sets, daily range): BP systolic 101–133; BP diastolic 56–81; PULSE 82–153; RESP 16–18; TEMP 36.1–36.6; O2SAT 97–100
[2024-10-25] MEDS: miSOPROStol 25 MCG TABLET PO ×2 (01:25→05:27)
[2024-10-25] MEDS: 0.9% Saline Lock 10 ML Syringe IV ×2 (01:26→23:03)
--- NOTE | 2024-10-25 07:46 | HP.PCM.OB_ITS ---
HPI - General General Date of Admission: 10/24/24 HPI Narrative MARK UNGER, is a 24 F who presents for scheduled induction of labor for postdates. Maternal Data Information KEKE Calculator Estimated Delivery Date Method Current WG Current Estimate 10/17/24 Manual 41w 1d PFSH PFS Medical History (Updated 10/25/24 @ 07:48 by Kiersten Cornejo CNM) Depression Anxiety Headache Home Medications ?Medication ?Instructions ?Recorded ?Last Taken ?Type acetaminophen 325 mg capsule 325 mg PO ONCE PRN pain 0 03/20/23 10/23/24 22:00 History PNV#14-iron fum-FA#2-fwa-owtilzsf cap PO 10/24/24 12:00 Histo ry 27 mg iron-1 mg-300 mg-50 mg capsule ascorbic acid (vitamin C) 100 mg 100 mg PO DAILY suppl ement 10/24/24 Unknown History tablet (Vitamin C) buspirone 5 mg tablet 5 mg PO TID PRN PRN anxiety 10/24/24 Unknown History evening primrose oil 500 mg capsule 500 mg PO DAILY krause pplement 10/24/24 Unknown History magnesium 200 mg tablet 200 mg PO DAILY supplement 0 10/24/24 Unknown History Allergy/AdvReac Type Severity Reaction Status Date / Time shellfish derived Allergy Mild Other Verified 10/24/24 19:34 Social History Smoking Status: Never smoker History 2 Elective abortions Hx Para 0 Spontaneous abortions Hx # Term Pregnancies Ectopic pregnancies Hx # Pregnancies Multiple births # of living children NST FHR Rate Baby A Baseline: 140 Variability:: Moderate Accelerations:: 15 x 15 Decelerations:: None NST Reactive:: Yes Uterine Activity:: 2-4 minutes and palpate mild ROS Eyes Eyes: Denies blurry vision, change in vision or spots in vision ENT HEENT: Denies dizziness or headache(s) Cardiovascular Cardiovascular: Denies abdominal pain, chest pain or dyspnea Respiratory/Chest Respiratory/Chest: Denies cough, dyspnea, shortness of breath at rest or shortness of breath with exertion Gastrointestinal Gastrointestinal: Denies abdominal pain, diarrhea or vomiting Genitourinary Genitourinary: Denies change in urinary stream, difficulty urinating or dysuria Musculoskeletal Musculoskeletal: Reports none Integumentary Integumentary: Denies rash Neurologic Neurologic: Denies dizziness, headache(s), memory loss or weakness Psychiatric Psychiatric: Reports none Vital Signs Vital Signs Vital Signs: 10/24/24 19:54 10/24/24 19:54 10/24/24 19:54 Temperature Temperature Source Temporal Pulse Rate 83 Respiratory Rate Blood Pressure 132/76 H BP Systolic 132 BP Diastolic 76 Pulse Ox 10/24/24 19:54 10/24/24 19:54 10/24/24 19:57 Temperature 98.1 F Temperature Source Pulse Rate Respiratory Rate 16 Blood Pressure 120/67 BP Systolic 120 BP Diastolic 67 Pulse Ox 10/24/24 19:57 10/24/24 23:36 10/24/24 23:36 Temperature Temperature Source Temporal Pulse Rate 85 Respiratory Rate Blood Pressure 108/57 L BP Systolic 108 BP Diastolic 57 Pulse Ox 10/24/24 23:36 10/24/24 23:36 10/24/24 23:36 Temperature Temperature Source Pulse Rate 84 Respiratory Rate 16 Blood Pressure BP Systolic BP Diastolic Pulse Ox 98 10/24/24 23:36 10/25/24 03:59 10/25/24 03:59 Temperature 97.9 F Temperature Source Pulse Rate 82 Respiratory Rate Blood Pressure 109/56 L BP Systolic 109 BP Diastolic 56 Pulse Ox 10/25/24 03:59 10/25/24 03:59 10/25/24 03:59 Temperature 97.6 F L Temperature Source Temporal Pulse Rate Respiratory Rate 16 Blood Pressure BP Systolic BP Diastolic Pulse Ox 10/25/24 07:26 10/25/24 07:26 10/25/24 07:26 Temperature Temperature Source Temporal Pulse Rate 89 Respiratory Rate Blood Pressure 133/81 H BP Systolic 133 BP Diastolic 81 Pulse Ox 10/25/24 07:26 10/25/24 07:26 10/25/24 07:26 Temperature 97.0 F L Temperature Source Pulse Rate Respiratory Rate 16 Blood Pressure BP Systolic BP Diastolic Pulse Ox 99 Weight Weight: 204 lb 9.423 oz Body Mass Index (BMI) 33.0 Physical Exam Const alert, oriented x3 and no apparent distress General Appearance: cooperative Orientation / Consciousness: awake Exam Limitations: no limitations HEENT normocephalic Head and Scalp: normal to inspection Eyes General Eye: normal appearance of both eyes Neck full ROM and no lymphadenopathy Lymph Lymphatic: no lymphadenopathy noted Chest inspection of chest normal Resp normal respiratory effort, normal air movement and clear to auscultation bila terally Effort and Inspection: able to speak in complete sentences and symmetric chest movement Cardio regular rate and regular rhythm GI normal to inspection, nondistended, normoactive bowel sounds Manual OB Exam: presentation cephalic Back/Spine normal ROM Extremity full ROM and no calf tenderness Skin no rashes or lesions noted General Skin Exam: no breakdown Neuro oriented x3 and CN's II-XII intact bilaterally Psych mental status grossly normal and thought process normal Labs Labs Labs: Blood Type A POSITIVE Antibody Screen NEGATIVE Hct 35.4 % (37-47) L Hgb 12.4 g/dL (12.0-15.0) Syphilis Total Ab Nonreactive (Nonreactive) Miscellaneous Test Assessment & Plan (1) 41 weeks gestation of : (2) Encounter for induction of labor: (3) Anxiety and depression: PLAN: Plan Admit to labor and delivery Routine labs Cytotec 25 mcg PO every 4 hours x 6 doses total- patient has had 3 doses GBS negative CE 2/50/-2 Grimes bulb placed without difficulty and filled with 30 cc N/S AROM for clear fluid with grimes bulb placement Start Pitocin at 2 mu/min after 4 hours last dose of Cytotec
[2024-10-25] MEDS: 0.9% Normal Saline Single 100 ML IV.SOLN. INTRA-UTER (08:05)
[2024-10-25] MEDS: Lactated Ringers 1,000 ML 50 ML IV (10:50)
[2024-10-25] MEDS: Oxytocin 15 Units/NS 250ml 15 UNITS/250 ML IV.SOLN 2 UNITS IV (10:51)
--- NOTE | 2024-10-25 16:27 | PCM.PN.CNM ---
Subjective Subjective Patient seen at bedside. Up and ambulating in room. Breathing through contractions. Objective Data Objective Data Vital Signs: Vital Signs Temp Pulse Resp BP Pulse Ox 97.8 F 90 16 130/69 H 98 10/25/24 13:31 10/25/24 15:33 10/25/24 15:33 10/25/24 15:33 10/25/24 15:33 Weight: 204 lb 9.423 oz Body Mass Index (BMI) 33.0 Intake & Output: Intake and Output for Last 24 Hours 10/23/24 10/24/24 10/25/24 23:59 23:59 23:59 Intake Total 1599.2 / 1599.2 Output Total 1200 / 1200 Balance 399.2 / 399.2 Lab / Micro Data 10/24/24 19:55 Labs: Laboratory Results - last 24 hr 10/24/24 19:55: WBC 12.9 H, RBC 3.79 L, Hgb 12.4, Hct 35.4 L, MCV 93.4, MCH 32.7 H, MCHC 35.0, RDW Std Deviation 48.8 H, RDW Coeff of Rigo 14.4, Plt Count 228, MPV 10.1, Immature Gran % (Auto) 1.000 H, Neut % (Auto) 80.7 H, Lymph % (Auto) 10.6 L, [place] % (Auto) 7.0, Eos % (Auto) 0.5, Baso % (Auto) 0.2, Absolute Neuts (auto) 10.4 H, Absolute Lymphs (auto) 1.37, Nucleated RBC % 0, Syphilis Total Ab Nonreactive, Blood Type A POSITIVE, Antibody Screen NEGATIVE Assessment & Plan (1) Encounter for induction of labor: (2) 41 weeks gestation of : (3) Artificial rupture of membranes antepartum: PLAN: Plan CE 5-6 / 80/-2 Breathing through contractions NST reactive- Cat. 1 tracing Pitocin at 6 mu/min Anticipate Dr. Otoole updated and is collaborating physician
--- NOTE | 2024-10-25 17:32 | PN.OBGYN_ITS ---
Subjective Subjective Patient seen at bedside. Involuntarily bearing down with contractions. Requesting CE. Objective Data Objective Data Vital Signs: Vital Signs Temp Pulse Resp BP Pulse Ox 97.1 F L 96 18 132/64 H 98 10/25/24 17:03 10/25/24 17:06 10/25/24 17:03 10/25/24 17:06 10/25/24 17:03 Weight: 204 lb 9.423 oz Body Mass Index (BMI) 33.0 Intake & Output: Intake and Output for Last 24 Hours 10/23/24 10/24/24 10/25/24 23:59 23:59 23:59 Intake Total 1599.2 / 1599.2 Output Total 1200 / 1200 Balance 399.2 / 399.2 Lab / Micro Data 10/24/24 19:55 Labs: Laboratory Results - last 24 hr 10/24/24 19:55: WBC 12.9 H, RBC 3.79 L, Hgb 12.4, Hct 35.4 L, MCV 93.4, MCH 32.7 H, MCHC 35.0, RDW Std Deviation 48.8 H, RDW Coeff of Rigo 14.4, Plt Count 228, MPV 10.1, Immature Gran % (Auto) 1.000 H, Neut % (Auto) 80.7 H, Lymph % (Auto) 10.6 L, [place] % (Auto) 7.0, Eos % (Auto) 0.5, Baso % (Auto) 0.2, Absolute Neuts (auto) 10.4 H, Absolute Lymphs (auto) 1.37, Nucleated RBC % 0, Syphilis Total Ab Nonreactive, Blood Type A POSITIVE, Antibody Screen NEGATIVE Assessment & Plan (1) Encounter for induction of labor: (2) 41 weeks gestation of : (3) Artificial rupture of membranes antepartum: (4) Anxiety and depression: PLAN: Plan CE /-2 no change Patient requesting to have Pitocin decreased from 8 mu/min- advised that could prolong labor process Patient then asking for epidural anesthesia Anesthesia notified and bolus started
[2024-10-25] MEDS: fentaNYL-bupivacaine (epidural) 100 ML BAG EPIDURAL (18:15)
[2024-10-25] MEDS: Lactated Ringers 1,000 ML 200 ML IV (18:56)
--- NOTE | 2024-10-25 19:41 | EX.PCM.OBVAG ---
Assessment & Plan (1) (spontaneous vaginal delivery): (2) Anxiety and depression: (3) Care and examination of lactating mother: Maternal Data Information KEKE Calculator Estimated Delivery Date Method Current WG Current Estimate 10/17/24 Manual 41w 1d Vaginal Delivery Maternal Presentation Maternal Presentation: Medically Indicated Induction Maternal Presentation: AT 41.1 weeks gestation for an induction of labor for postdates. Type of Induction: Pitocin, Hawk Bulb, Amniotomy and Cytotec Medical Reason for Induction: Post term Vaginal Delivery Information Procedure Performed: Spontaneous Vaginal Delivery Surgeon/Practitioner: Kiersten Cornejo Date of Procedure: 10/25/24 Pre-Procedure Diagnosis: Post term gestation, induction of labor Post-Procedure Diagnosis: , Live female Type of anesthesia: Epidural Estimated Blood Loss: 200 Time of Delivery: 19:16 Findings Description of procedure: Patient progressed to complete dilation and began feeling pressure. Provided bedside support through pushing. Vegetable Ii Farmworker and RT to room for delivery. Several position changes during pushing due to decelerations. Dr. Otoole notified to come and evaluate for possible assistance with vacuum due to decelerations. heart tones recovering well in between pushes. With good maternal effort, head delivered followed immediately by anterior shoulder and remainder of infant body without any force, delay, or traction. Vigorous female was delivered atraumatically and placed on maternal abdomen. Pitocin IV started for active management of the third stage of labor. 3 vessel cord clamped and cut after delay and placed under warmer for suctioning with garage construction equipment mechanic. Placenta delivered spontaneously and intact. After inspection, vagina and perineum are intact. Vaginal sweep performed. Fundus is firm 2 below U and bleeding is hemostatic. Sponge and sharps counts correct. Infant placed back skin to skin with patient and bonding well at this time. Patient and infant bonding well at this time. Dr. Otoole in room at time of delivery. Routine post orders placed. Presentation: Vertex and TATIANA Amniotic Membrane Rupture Type: Artificial Amniotic Fluid Description: Clear Placental Delivery Description: Spontaneous Placenta Disposition: [facility] Specimen collected: No Cord Vessel Description: 3 Vessels Cord Entanglement: None Nuchal Cord Compression: Without compression Infant A Gender: Female (1 minute): 7 (5 minute): 9 Delayed Cord Clamping: Yes Quality Lead specialty plant supervisor: No Post Vaginal Deli Medications given after delivery: IV Pitocin Episiotomy Description: None Laceration: None Complication Complications: No
[2024-10-25] MEDS: Oxytocin 15 Units/NS 250ml 15 UNITS/250 ML IV.SOLN 83 UNITS IV ×2 (19:57→20:47)
[2024-10-25] MEDS: Ibuprofen 600 MG Tablet PO (21:31)
[2024-10-26] MEDS: SimETHICONE 80 MG Chewable Tablet PO (02:30)
[2024-10-26 02:48] VITALS: BP 125/55; PULSE 90; RESP 16; O2SAT 98
[2024-10-26] MEDS: Acetaminophen 500 MG Tablet 1000 MG PO ×2 (06:11→14:21)
--- NOTE | 2024-10-26 06:58 | PCM.DC.SUM ---
Providers Date of Admission: 10/24/24 Primary Care Physician: NP. Mercedes Padron, STEEL [employer] FORM PLACING SUPERVISOR-C Reason For Visit: VAGINAL DELIVERY Diagnosis Discharge Diagnosis (1) (spontaneous vaginal delivery): Status: Acute Code(s): O80 - Encounter for full-term uncomplicated delivery (2) Anxiety and depression: Status: Acute Code(s): F41.9 - Anxiety disorder, unspecified; F32.A - Depression, unspecified (3) Care and examination of lactating mother: Status: Acute Code(s): Z39.1 - Encounter for care and examination of lactating mother Plan PPD 1 Pain controlled support D/C home after 24 hours Medications at Discharge Home Medications acetaminophen 325 mg capsule 325 mg PO ONCE PRN pain 03/20/23 PNV#14-iron [id number] 27 mg iron-1 mg-300 mg-50 mg capsule cap PO 10/24/24 ascorbic acid (vitamin C) 100 mg tablet (Vitamin C) 100 mg PO DAILY supplement 10/24/24 buspirone 5 mg tablet 5 mg PO TID PRN PRN anxiety 10/24/24 evening primrose oil 500 mg capsule 500 mg PO DAILY supplement 10/24/24 magnesium 200 mg tablet 200 mg PO DAILY supplement 10/24/24 ibuprofen 600 mg tablet 600 mg PO Q6H PRN PRN Pain 1-10 Or Fever #0 tabs 10/26/24 Hospital Course Operations None Procedures None Summary of Care Provided Minutes Spent on Discharge: 15 Hospital Course: Patient had vaginal delivery. Hospital course was uneventful. Physical Exam Narrative Patient seen at bedside. Ambulating and voiding without difficulty. . Denies pain. Desires discharge home after 24 hours. Const alert and no apparent distress General Appearance: cooperative and comfortable Exam Limitations: no limitations HEENT normocephalic Eyes General Eye: normal appearance of both eyes Neck full ROM General: normal visual inspection Chest Chest: symmetrical chest wall rise Resp normal respiratory effort and normal air movement Effort and Inspection: symmetric chest movement Auscultation: clear to auscultation bilaterally Cardio regular rate and regular rhythm Peripheral Pulses: pulses 2+ throughout GI normal to inspection, nondistended, normoactive bowel sounds Narrative: Ice to perineum OB / External & Speculum: vaginal bleeding and other Lochia decreasing Uterus Palpation: uterus fundus firm (Below U) Back/Spine normal ROM Extremity full ROM and no calf tenderness General Extremity: normal exam except as noted Skin no rashes or lesions noted Neuro oriented x3 Speech: speech normal Psych mental status grossly normal Thought Process: normal thought process Weight / BMI Weight Weight: 204 lb 9.423 oz Body Mass Index (BMI) 33.0 ABG / Lab / Microbiology Data 10/24/24 19:55 D/C Instructions Discharge Diet: No restrictions Discharge Activity: Return to Normal Activity, No Restrictions, May Drive, May Shower and May Take a Tub Bath (Warm water only. No bath salts, soaps, bubbles) May resume sexual activity in: 6-8 weeks Weight Bearing Status: Weight bearing as tolerated Call your doctor if you observe: Fever of 101 or Higher, Inability to urinate, Using more than 1 pad per hour, Shortness of breath, Dizziness, Chest pain, Calf discomfort and Uncontrolled pain DC O2, CPAP, BIPAP Needs Home O2 Discharge instructions: No Please Follow Up With: [facility] Rani HARRIS When: 2 weeks in office or virtual Meaningful Use Info Meaningful Use Meaningful Use Diagnoses (Choose all that apply): None applicable Ischemic Stroke Statin Dosing Therapy Reference: STATIN DOSE THERAPY REFERENCE: * Patients > 75 years receive moderate or high dose statin therapy. * Patients 75 years or YOUNGER should receive HIGH intensity statin dose unless contraindicated. You will be required to document reason for non-treatment if statin daily dose does not meet guidelines. HIGH DOSE STATIN THERAPY DAILY Atorvastatin > than or = to 40 mg Rosuvastatin > than or = to 20 mg Amlodipine + Atorvastatin > than or = to 2.5/40 mg Ezetimibe + Simvastatin 10/80 mg Simvastatin 80mg Discharge Plan Admission Admit Date/Time: 10/24/24 19:09 Primary Reason for Your Visit: Labor and Delivery Attending Provider: Yuly Soler Primary Care Provider: Mercedes Padron Discharge Orders/Prescriptions Prescriptions: New ibuprofen 600 mg Tablet 600 mg PO Q6H PRN PRN (Reason: Pain 1-10 Or Fever) Qty: 0 0RF Continued acetaminophen 325 mg capsule 325 mg PO ONCE PRN (Reason: pain) buspirone 5 mg tablet 5 mg PO TID PRN PRN (Reason: anxiety) PNV #14-[id number] 27 mg iron-1 mg -300 mg-50 mg capsule PO Vitamin C 100 mg tablet 100 mg PO DAILY magnesium 200 mg tablet 200 mg PO DAILY No Action evening primrose oil 500 mg capsule 500 mg PO DAILY Rx Instructions: give with meal/snack Referrals / Follow Up: Kiersten Cornejo CNM [Med Staff - [facility] Practice Prof] - Mercedes Padron NP-C [Primary Care Provider] - Disposition Disposition (needs filled in before D/C Order can be placed): Home, Self Care
[2024-10-26 08:50] VITALS: BP 130/75; PULSE 71; RESP 17; TEMP 36.7; O2SAT 99
[2024-10-26 12:24] VITALS: BP 124/76; PULSE 77; RESP 16; TEMP 36.6
[2024-10-26 17:02] VITALS: BP 138/77; PULSE 73; RESP 17; TEMP 36.9
--- NOTE | 2024-10-26 19:13 | CASEMGMT ---
Social Work Assessment Labor and Delivery Unit Patient Address:? [address] [facility] [facility] [address] [place] [address] Phone number: [phone] Date of Referral: ?10/26/2024 Time of Referral:? 3:55 Referred By: Howard Date of Intervention: ??10/26/2024 Time of Intervention:? 13:00 Reason for Referral:? History of anxiety and depression MAGDY completed chart review and acknowledges social work consult due to maternal mental health. MAGDY presented to bedside and introduced self to mother of baby (ANNA- Jane).? MAGDY completed psychosocial assessment.? FOB ? Dawit ? present at time of assessment and participated respectfully.?? History obtained from: medical records, MOB and FOB. Household composition: ANNA reports that she and FOB live by themselves, no other children.? Patient's parent/guardian status:?ANNA reports that she and FOB have been since 2019.? ANNA had one previous that she carried to 18 weeks.?? FOB appears attentive and supportive of both mother and baby. Medical History: ?ANNA is 24 year old female who is gravita 2, para 0 now 1follwoing labor and delivery of .? MOB received routine care through [facility].? ANNA presented to hospital for induction of labor.? ANNA delivered baby on 10/25/2024 at 41 weeks gestation. Baby girl, Deloris, was born weighing 7 pounds 15 ounces.? ANNA is .? Baby will be followed by [facility].? Educational Status:? 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 ?FOB reports to having an associates degree Financial Status: ?ANNA works in [employer] FOB has an associates degree and works at [employer]. Both MOB and FOB plan to take 6 weeks off with baby, FOB states that his time off is paid.? Infant Supplies: ?ANNA has obtained all necessary baby supplies, including care seat, safe sleep space, clothes, diapers and wipes.? Childcare/Caregiver(s):? MOB and FOB will be primary caregivers for infant.? ANNA states that she is able to take baby with her to work. MOB works 2 days a week, plans to take baby one day and schedule the other day when FOB is home to care for baby.? MOB works 2- 12 hour shifts per week.? MOB and FOB state that MOB parents are also close and are able to help if needed.? Transportation:?? MOB and FOB both have their drivers license, no barriers to transportation reported.? Programs/Agencies Involved: ???MOB deny any involvement with outside agencies or programs. MOB deny any need to additional assistance.?? Children Services/Legal Issues:??? No history of legal concerns . Behavioral Health Issues: ??Mental Health History:? MOB reports to depression and anxiety but states that she feels her symptoms have decreased throughout her .?? MOB is prescribed Buspirone PRN through her PCP, MOB reports to minimal use during .? MOB does not go a licensed counselor but states she routinely sees the moving picture operator of her hindu and his for counseling.?? Patient denies need for list of counseling agencies, stating if her moving picture operator feels she needs formal counseling she will trust him to make a referral? MOB states she is also comfortable speaking with her PCP if she feels that her PRN medication becomes ineffective or if she feels she needs something routine.? MOB reports to understanding the symptoms of post- and knows to reach out for help if needed.? ??Substance Use History: MOB and FOB both deny any history of drug or alcohol use. ??Family History: MOB reports that her father has had depressive symptoms on and off, MICHAEL report that his mother and father both have anxiety and depression symptoms and his brother is autistic and recently diagnosed with borderline personality disorder.? Drug Screens: none indicated. Family/Social Stressors:? MOB reports to a healthy relationship with her parents and most of her siblings, stating that some she is not as close to as they live several hours away.? MICHAEL reports to a stressful relationship with his parents, but states it is much better since they have moved out of state.? MICHAEL reports that particularly his mother can be overbearing but with the geographic distance, their relationship has improved.?? Support Systems: ??MOB mother, father and siblings. Depression/Shaken Baby/Safe Sleeping: ?MAGDY spoke with MOB regarding signs and symptoms of baby blues, mood and anxiety disorders to be mindful of during this post partem period.?? MOB receptive to information.? MAGDY educated MOB and FOB of shaken baby prevention and the ABCs of safe sleep. MOB reports to understanding.?? ASSESSMENT:? MOB and baby admitted following labor and delivery. Upon entering room, mother was and appeared comfortable. FOB was sitting on edge of bed talking with MOB. MOB and FOB appeared supportive of each other and engaged with . PLAN:?? No other services requested or indicated. MOB and baby to be discharged when medically ready. Parents were provided literature regarding: signs and symptoms of baby blues and mood and anxiety disorders, Help Me Grow, shaken baby prevention, ABCs of safe sleep and a list of [facility] resources that are available for them should any needs present themselves. Lulu Bender, CAN OPERATOR, AUTOMATION LEAD
[2024-10-26 19:58] VITALS: BP 132/79; PULSE 79; RESP 14; O2SAT 97
== END 2024-10-26 21:30 | disposition home or self-care (01) | DRG 807 ==
PROVIDERS: Admitting Provider Obstetrics & Gynecology; PCP Nurse Practitioner Family; Visit Provider Obstetrics & Gynecology
DX: O48.0 Post-term pregnancy (principal); Z37.0 Single live birth; O99.344 Other mental disorders complicating childbirth; F32.A Depression, unspecified; F41.9 Anxiety disorder, unspecified; Z3A.41 41 weeks gestation of pregnancy; Z39.1 Encounter for care and examination of lactating mother
CPT/HCPCS: 59025; 59050; 85025; 86780; 86850; 86900; 86901; 99221; A4216; G0378